=== PATIENT | female | born 1955 | race Caucasian/White ===

== ENCOUNTER → 2022-07-08 | Outpatient (CLI) | payer MEDICARE, OTHER, SELFPAY ==
--- NOTE | 2022-07-08 12:10 | US_ITS ---
STUDY: ULTRASOUND OF THE FEMALE PELVIS - COMPLETE REASON FOR EXAM: Female, 67 years old. PMBPost-Menopausal BleedingUS - LMP: The patient is postmenopausal. TECHNIQUE: Transabdominal and Transvaginal TECHNICAL QUALITY: Adequate. COMPARISON: None. FINDINGS: The uterus is anteverted and is in a midline position. The uterus is enlarged and measures 11.7 cm x 6.5 cm x 5.8 cm. There is a Nabothian cyst of the cervix. The endometrium is thickened and measures 17 mm in thickness, and is heterogeneous (striated). Increased vascularity within the endometrium. There is no demonstrated endometrial mass. 2 small uterine fibroids are seen. The larger measures 2.1 cm x 2 cm x 1.1 cm. I.U.D. - The patient does not have an I.U.D. The right ovary is non-visualized due to bowel gas and patient''s body habitus. The left ovary is visualized due to bowel gas and patient''s body habitus. There is no fluid in the cul-de-sac. The pre void volume of the bladder was 133 ml. US/Pelvic (Non ) IMPRESSION: Enlarged fibroid uterus and thickened endometrium. Electronically Signed: Urbano Marin MD at 15:11 EST ,
== END | disposition home or self-care (01) ==
PROVIDERS: PCP Internal Medicine; Visit Provider Obstetrics & Gynecology
DX: N95.0 Postmenopausal bleeding (principal); D25.9 Leiomyoma of uterus, unspecified
CPT/HCPCS: 76830; 76856

== ENCOUNTER 2022-07-28 15:51 | Outpatient (CLI) | payer MEDICARE, OTHER, SELFPAY ==
--- NOTE | 2022-07-28 13:20 | EMB_PTH ---
PATIENT: LEROY CHRISTIAN LOC: [facility] U#:[id number] AGE/SX: 67/F ROOM: RE07/28/[address]: BERNY Dobbins : 1955 BED: DIS: 07/28/2022 SPEC #: [id number] RECD: 07/28/22 15:46 STATUS: MIMI ISAMAR #: [id number] AMINA: 07/28/22 13:[address]: Bhakti Varner NP DEPT: SURGICAL PATHOLOGY RECD BY: Leticia Gutierrez ENTERED: 07/29/22 07:25 SP TYPE: ENDOM BX/C ANÍBAL DR: Dr. Colby Avendaño MD Tissues: A - Endometrium, NOS B - Uterine cervix, NOS Procedures: Surgery Specimen Level IV HEADER OPERATION: Endometrial biopsy PRE-OP DIAGNOSIS: Abnormal uterine bleeding TISSUE SUBMITTED: A ? Endometrial tissue, B ? Uterine polyp MICROSCOPIC DIAGNOSIS A. Endometrium, biopsy: Weakly proliferative endometrium. Focal stromal hyalinization. B. Uterine polyp, biopsy: Benign ectocervical-endocervical polyp, mildly inflamed. AM:albert 07/30/2022 MICROSCOPIC DESCRIPTION Slides are reviewed. GROSS DESCRIPTION A - Received in fixative is one container labeled with the patient's name and designated endometrial tissue. The specimen consists of multiple fragments of hemorrhagic soft tissue that in aggregate measure 2.5 x 2.5 x 0.1 cm. The specimen is totally submitted in one cassette. B - Received in fixative is one container labeled with the patient's name and designated uterine polyp. The specimen consists of a armando-pink polyp measuring 1 x 1.2 x 0.7 cm. The polyp is bisected. Also present in the container are multiple fragments of armando mucoid tissue measuring in aggregate 0.5 x 0.5 x 0.1 cm. The entire specimen is submitted in one cassette. / LYNN:albert 07/29/2022 TC:5 CPT: 66266 x2
== END 2022-07-28 23:59 | disposition home or self-care (01) ==
LOC: LABSPEC 15:52
PROVIDERS: PCP Internal Medicine; Visit Provider Nurse Practitioner Women's Health
DX: N93.9 Abnormal uterine and vaginal bleeding, unspecified (principal)
CPT/HCPCS: 88305

== ENCOUNTER 2022-09-05 07:24 | Day surgery (SDC) | payer MEDICARE, OTHER, SELFPAY ==
--- NOTE | 2022-09-02 08:51 | EKG12_ITS ---
Test Reason : PREOP Blood Pressure : / mmHG Vent. Rate : 068 BPM Atrial Rate : 068 BPM P-R Int : 130 ms QRS Dur : 088 ms QT Int : 418 ms P-R-T Axes : 020 -12 009 degrees QTc Int : 444 ms Normal sinus rhythm with sinus arrhythmia Nonspecific ST abnormality Septal UT, age undetermined, cannot be excluded Abnormal ECG Confirmed by JENNIFER SOTO, HAZEL ([id number]), editorial director OLIMPIA ISAACS ([id number]) on 09/03/2022 9:43:53 AM Referred By: [facility] Confirmed By:HAZEL RODRIGUEZ MD
[2022-09-02 10:15] LABS: Absolute Lymphocyte Count 2.67 X10^3/uL (0.83-4.51); Absolute Neutrophil Count 4.4 X10^3/uL (2.0-7.7); Basophil# 0.06 X10^3/uL; Basophil% 0.8 % (0-1); Eosinophil# 0.14 X10^3/uL; Eosinophils% 1.8 % (0-5); Hemoglobin 15.1 g/dL (12.0-15.0); Lymphocyte # 2.67 X10^3/ul (0.83-4.51); Lymphocyte % 33.9 % (19-41); Mean Corp Hgb Conc 32.8 g/dL (32-36); Mean Corpuscular Hgb 29.3 pg (27.0-32.0); Mean Corpuscular Volume 89.3 fL (81-99); Mean Platelet Vol. 11.3 fl (6.2-12.0); Monocyte# 0.57 X10^3/uL; Monocyte% 7.2 % (0-10); NRBC Flagged by Analyzer 0 % (0-5); Neutrophil # 4.42 X10^3/uL (2.7-7.7); Platelet Count 264 K/mm3 (150-450); RBC Distribution Width CV 12.8 % (11.6-14.6); RBC Distribution Width SD 41.6 fl (35.1-43.9); Red Blood Count 5.15 M/mm3 (4.2-5.4); White Blood Count 7.9 K/mm3 (4.4-11.0)
[2022-09-02 10:47] LABS: ALB/GLOB Ratio 0.9 RATIO (0.9-2.4); AST(SGOT) 12 U/L (15-37); Alanine Aminotransfer ALT/SGPT 24 U/L (13-56); Albumin, Serum 3.3 g/dL (3.2-5.0); Alkaline Phosphatase 115 U/L (45-117); Anion Gap 5 (5-15); BUN 12 mg/dL (7-18); BUN/Creat Ratio 16.3 RATIO (10-20); Calcium,Total 8.6 mg/dL (8.5-10.1); Chloride 105 mmol/L (98-107); Creatinine, Serum 0.74 mg/dL (0.55-1.02); EST Glomerular Filtration Rate 84 mL/min (>60); Est Glom Filt Rate - Afr Amer 101 mL/min (>60); Globulin 3.7 g/dL (2.2-4.2); Glucose 104 mg/dL (74-106); Sodium Level 141 mmol/L (136-145)
[2022-09-05] VITALS (9 sets, daily range): BP systolic 120–164; BP diastolic 69–89; PULSE 60–88; RESP 16–18; TEMP 36.1–36.3; O2SAT 93–98; BMI 40.4
[2022-09-05] MEDS: Lactated Ringers 1,000 ML 15 ML IV (07:45)
--- NOTE | 2022-09-05 08:16 | DCINST_ITS ---
Discharge Instructions Diet Discharge Diet: No restrictions Activity Discharge Activity: Return to Normal Activity, May Shower and May Take a Tub Bath (after 1 week) May resume sexual activity in: 1-2 weeks Weight Bearing Status: Weight bearing as tolerated Lifting Restrictions: none Dressing / Incision Call your doctor if you observe: Fever of 101 or Higher, Using more than 1 pad per hour, Shortness of breath and Uncontrolled pain Follow Up Care Please Follow Up With: Alessia Ha DO When: Call [phone] to schedule appointment. Test Results: Test results from this visit will be discussed in further detail at your follow- up appointment, if applicable. Discharge Plan Admission Primary Reason for Your Visit: hysteroscopy D&C Attending Provider: Alessia Ha Primary Care Provider: Colby Avendaño Discharge Orders/Prescriptions Prescriptions: New naproxen 500 mg tablet 500 mg PO BID PRN (Reason: pain) Qty: 14 0RF Continued omeprazole 40 mg capsule,delayed release(DR/EC) 40 mg PO DAILY aspirin [Adult Aspirin Regimen] 81 mg tablet,delayed release (DR/EC) 81 mg PO DAILY metoprolol succinate 25 mg tablet extended release 24 hr 25 mg PO BID Referrals / Follow Up: Colby Avendaño MD [Primary Care Provider] - Disposition Disposition (needs filled in before D/C Order can be placed): Home, Self Care
--- NOTE | 2022-09-05 08:55 | EMB_PTH ---
PATIENT: LEROY CHRISTIAN LOC: [facility] [place] U#:[id number] AGE/SX: 67/F ROOM: RE09/05/[address]: Dr. Alessia Ha DO : 1955 BED: DIS: 09/05/2022 SPEC #: [id number] RECD: 09/05/22 11:08 STATUS: MIMI ISAMAR #: [id number] AMINA: 09/05/22 08:[address]: Alessia Ha DEPT: SURGICAL PATHOLOGY RECD BY: Leticia Gutierrez ENTERED: 09/05/22 13:41 SP TYPE: ENDOM BX/C OTHR DR: Dr. Colby Avendaño MD Tissues: Endometrium, NOS Procedures: Gen Path Consultation (on slides) Surgery Specimen Level IV HEADER OPERATION: Hysteroscopy, D & C Symphion, resection of polyp PRE-OP DIAGNOSIS: Thickened endometrium, endocervical polyp TISSUE SUBMITTED: Endometrial curettings and polyp MICROSCOPIC DIAGNOSIS Endometrial curettings and polyp: Fragments of hyalinized smooth muscle tissue with infiltrative glands. See comment. Endometrial hyperplasia without atypia. Endometrial polyp. Endocervical polyp. SJ:rg 09/19/2022 COMMENT The specimen is sent to [facility] for expert opinion, reviewed by Dr. Dennis and the above diagnosis is rendered. Dr. Dennis also commented that ?the bulk of the specimen consist of smooth muscle tissue fragments with degenerative change and infiltrative glands. The glands show some complex architecture, but cytologically appear bland with minimal proliferative activity. Differential diagnosis includes infiltrate well differentiated adenocarcinoma, adenomyoma with degenerative change.? Correlation with clinical findings and appropriate follow-up are necessary. The complete report is viewable in the patient's EMR. Case has been reviewed in consultation with Dr. Travis who concurs with the above diagnosis. IDC:AM MICROSCOPIC DESCRIPTION Slides are reviewed. GROSS DESCRIPTION Received in fixative is one container labeled with the patient's name and designated endometrial curettings and polyp. The specimen consists of multiple irregular fragments of armando soft tissue that in aggregate measure 5 x 3 x 0.6 cm. Also present in the container are two polypoid pieces of armando-pink measuring 0.6 and 2 cm in greatest dimension. The entire specimen is submitted in six cassettes. Cassette 1 contains the polypoid pieces. / LYNN:albert 09/05/2022 TC:5 CPT: 78842
[2022-09-05] MEDS: Lidocaine 1% (20 ml mdv) 20 ML Vial (09:18)
--- NOTE | 2022-09-05 09:36 | PCM.OP.BLANK ---
Operative Report Date of Procedure: 09/05/22 preoperative diagnosis: postmenopausal bleeding and office biopsy diagnosis of cervical polyp Postoperative diagnosis:postmenopausal bleeding and office biopsy diagnosis of cervical polyp Surgeon: Dr. Alessia Ha DO EBL: minimal urine output: 30cc findings: atrophic appearing uterus specimens removed: endometrial curettings and polyp fluid deficit 800cc Details of the procedure: Patient was prepped and draped in a normal sterile fashion under MAC anesthesia. A weighted speculum was placed in the vagina and the anterior lip of the cervix was grasped with a single-tooth tenaculum. A paracervical block was placed with 1% lidocaine. Cervix was progressively dilated to allow passage of a 5 mm hysteroscope. The lining was fully visualized and noted to have a moderate size polyp present at the lower uterine segment,. The symphion device was inserted and activated to remove the polyp. A sharp curettage was performed following the symphion procedure and specimen was sent to pathology. All instruments were removed from the vagina and excellent hemostasis was noted. Patient was awoken and taken to recovery in stable condition. Multi Select Codes Urinary/Genital Urinary/Genital CPT Codes: 03567 Hysteroscopy,EMC, Polypectomy
--- NOTE | 2022-09-05 12:29 | PCM.HP.BLA ---
History and Physical Date of Admission: 09/05/22 MR#: [id number] Acct: [id number] Name:LEROY CONTRERAS Rep #: [id number] : 1955 ? ? Provider: Dr. Alessia Ha, DO Age/Sex:? 67/F ? ? Location: [facility] – [place] Status: Signed Intake Vital Signs ? 08/21/2208:22 08/21/2208:22 Height 5 ft 10 in 5 ft 10 in Weight: 284 lb ? BMI 40.7 ? BP 166/84 H ? Intake Visit Reasons:?D&C Chief Complaint: pre op D&C Clipper And Turner Required: No Is patient in pain?: No Allergies No Known Allergies Allergy (Unverified 07/28/22 13:04) Medications aspirin 81 mg tablet,delayed release (Adult Aspirin Regimen) 81 mg PO DAILY 07/28/22 [History Confirmed 08/21/22] metoprolol succinate 25 mg tablet,extended release 24 hr 25 mg PO BID 07/28/22 [History Confirmed 08/21/22] omeprazole 40 mg capsule,delayed release 40 mg PO DAILY 07/28/22 [History Confirmed 08/21/22] Is last menstrual period known: No Post menopausal: Yes Patient : No : No PFSH Medical History? Acid reflux Hypertension Surgical History? S/P Achilles tendon repair S/P cholecystectomy Family History? Father Cancer ?? ? bladder, prostate, lung Social History?(Updated 08/21/22 @ 08:22 by Adalgisa Gorman) Smoking Status:? Former smoker alcohol intake:? never substance use type:? does not use caffeine:? Yes do you feel safe at home:? Yes HPI D&C Details: LEROY CHRISTIAN is a 67 year old who presents for pre-op hysteroscopy D&C possible polypectomy due to 15 mm endometrium after a cervical polyp was removed. It is believed that the polyp my have tracked to the uterus and the entire polyp was not removed in the office. She is scheduled for 09/05/22. ROS Const ROS Unobtainable: All systems reviewed & are unremarkable except as noted in H Resp Resp: Reports system reviewed and no additional complaints, except as documented; Denies cough GI GI: Reports as per HPI Psych Psych: Reports system reviewed and no additional complaints, except as documented Exam Const General: cooperative, healthy appearing, comfortable and no acute distress Resp Effort & Inspection: normal respiratory effort Skin General: no rashes or lesions noted Psych Appearance: grossly normal Speech and Movement: speech and movement normal Coding Level of Care Code Off vis,est,level 3 Diagnoses Thickened endometrium? R93.89 Endocervical polyp? N84.1 Assessment and Plan Assessment and Plan (1) Thickened endometrium: ?Status:?Acute (2) Endocervical polyp: ?Status:?Acute Plan After discussing the patient's diagnosis and treatment plan options, patient wishes to proceed with surgical management.? I have discussed with the patient the risks, benefits, and alternatives of the procedure which include but are not limited to risks of anesthesia, bleeding, infection, possible damage to bowel, bladder, or surrounding vasculature which could lead to additional surgery to evaluate any complications.? Patient agrees to procedure and wishes to proceed.? ACOG/uptodate references given for additional information regarding procedure.? plan for hysteroscopy with the symphion device and guided D&C with possible polypectomy
== END 2022-09-05 11:42 | disposition home or self-care (01) ==
LOC: SDC 07:25 → AC 07:26
PROVIDERS: PCP Internal Medicine; Referring Provider Obstetrics & Gynecology; Visit Provider Obstetrics & Gynecology
PROC: 0UB98ZZ Excision of Uterus, Via Natural or Artificial Opening Endoscopic (ICD-10-PCS; CPT 58558; principal; 2022-09-05 08:40)
DX: N84.1 Polyp of cervix uteri (principal); N95.0 Postmenopausal bleeding; I10 Essential (primary) hypertension; Z79.899 Other long term (current) drug therapy; Z87.891 Personal history of nicotine dependence
CPT/HCPCS: 58558; 00952; 36415; 80053; 85025; 86850; 86900; 86901; 88305; 88325; 93005; J7120; J2405

== ENCOUNTER 2024-05-17 11:30 | Inpatient (IN) | payer MEDICARE, SELFPAY ==
[2024-05-17] VITALS (9 sets, daily range): BP systolic 175–228; BP diastolic 81–118; PULSE 67–87; RESP 18; TEMP 36.8; O2SAT 94–97; BMI 40.7; BMI 40.6
--- NOTE | 2024-05-17 12:26 | EX.PCM.HP.RE ---
HPI - General General Date of Admission: 05/17/24 Date of Service: 05/17/24 Chief Complaint: POST STROKE DEBILITY HPI Narrative LEROY CHRISTIAN, is a 69 yo F with a PMH of HTN, morbid obesity, GERD, nocturia, chronic low back pain(takes Meloxicam) and insomnia who presented to the emergency department at [facility] on 05/15/2024 complaining of weakness of the left arm and left leg and tingling in the left hand. She also admits to having some memory difficulties. The weakness that started on , 05/12/2024 and she did not seek medical care. Systolic blood pressure in the emergency department was elevated in the 200s. Noncontrast CT brain was unremarkable with no acute changes. CTA of the head and neck showed moderate stenosis of the distal right vertebral artery just proximal to the basilar artery which was patent. An incidental finding was scattered hypodensities throughout the periventricular white matter most likely consistent with chronic small vessel angiopathy. Another incidental finding on the CTA of the neck was a 2.1 cm right thyroid nodule. While an IV was being placed she became lightheaded and bradycardic with a heart rate in the high 20s/low 30s. She was given 0.5 mg of atropine with improvement. There is no NIHSS documented on the ER documentation. Physical exam showed her to be alert and oriented x 3 with intact cranial nerves II through XII. Strength was reportedly 5/5 in the upper and lower extremities and equal bilaterally. She had no sensory deficits. [id number] was normal. She is not able to do heel em due to inflexibility of the hips and knees BL. Labs showed a hemoglobin A1c of 5.6%. Total cholesterol was 218 with an LDL of 154 and an HDL of 44. Triglycerides were within normal limits at 99. TSH and free T4 were both normal. Lab was otherwise unremarkable. She was admitted to the hospital. MRI on 05/16/2024 showed acute/early subacute nonhemorrhagic lacunar infarct centered in the right garza radiata and posterior putamen. There were mild chronic microvascular white matter ischemic changes. A referral was made for acute rehab and she was transferred to the acute inpt rehab unit at [facility]? on 05/17/24 for 3 hours of therapy daily to restore function/independence at or near her level prior to the stroke. I do not see a tele-neurology consult in the documentation sent to us from [facility]. She admits to seeing her PCP only once a year. Her BP is always high when she gets there but, on recheck after she calms down it is better. She does not check her BP at home. She tells me that she is supposed to see her PCP every 6months but, she feels fine and does not feel this is necessary. Last MMG was about a year ago. She has had a breast bx in the past and it was negative for malignancy. She has never had a bone mineral density test. Her tells me that she snores and she stops breathing at night when sleeping. she has never had a sleep study. She denies hx of AF and also denies palpitations and racing heart. 1. Do you snore loudly? Y 2. Do you often feel tired, fatigued or sleepy during the day? Yes 3. Has anyone ever observed you stop breathing during sleep? Yes 4. Do you have (or are you being treated for) HTN? Yes BMI 40.8 AGE 69 Neck circumference 40 Gender female Total 7 PFSH Medical History (Updated 05/17/24 @ 13:[address] Ruth Nunn, DO) Insomnia Nocturia more than twice per night Morbid obesity with BMI of 40.0-44.9, adult Endometrial hyperplasia Afraid Wears glasses Wears partial dentures Post-menopausal Arthritis Back pain Migraine headache Former smoker Leg cramps Cardiology follow-up encounter Thickened endometrium Endocervical polyp Acid reflux Hypertension Post-menopausal bleeding Home Medications ?Medication ?Instructions ?Recorded ?Last Taken ?Type aspirin 81 mg tablet,delayed 81 mg PO DAILY Heart health 07/28/22 09/02/22 History release (Adult Aspirin Regimen) atorvastatin 40 mg tablet 40 mg PO DAILY Cholestrol 05/17/24 Unknown History clopidogrel 75 mg tablet 75 mg PO DAILY blood thinner 05/17/24 Unknown History enoxaparin 40 mg/0.4 mL 40 mg subcut DAILY Blood thinner 05/17/24 Unknown History subcutaneous syringe (Lovenox) meloxicam 15 mg tablet 7.5 mg PO DAILY Osteoarthritis 05/17/24 Unknown History metoprolol tartrate 50 mg tablet 50 mg PO BID BP 05/17/24 Unknown History solifenacin 10 mg tablet 10 mg PO DAILY Bladder 05/17/24 Unknown History trazodone 100 mg tablet 100 mg PO QHS sleep 05/17/24 Unknown History Allergy/AdvReac Type Severity Reaction Status Date / Time No Known Allergies Allergy Unverified 09/30/22 10:52 Family History (Updated 05/17/24 @ 13:[address] Ruth Nunn DO) Father Cancer bladder, prostate, lung Mother Diabetes Hypertension Surgical History (Updated 05/17/24 @ 13:[address] Ruth Nunn DO) History of breast biopsy S/P D&C (status post dilation and curettage) (~09/05/22) History of cardiac catheterization Hx of tonsillectomy S/P Achilles tendon repair S/P cholecystectomy Social History (Updated 05/17/24 @ 13:[address] Ruth Nunn DO) household members: spouse housing: house Smoking Status: Never smoker how long ago did patient quit smoking: >20 years ago......smoked less than 1 PPD for a few years. alcohol intake: current alcohol intake frequency: holidays/special occasions only substance use type: does not use caffeine: Yes do you feel safe at home: Yes Homelessness:: Sheltered (Not homeless. ) ROS Constitutional Constitutional: Reports fatigue and weakness; Denies anorexia, change in weight, chills, fever(s) or night sweats Eyes Eyes: Denies blurry vision, change in vision, eye pain or loss of vision ENT HEENT: Denies abnormal hearing, dysphagia, headache(s), hearing loss, nasal congestion or sore throat Cardiovascular Cardiovascular: Denies chest pain, dyspnea on exertion, edema, lightheadedness, orthopnea, palpitations, paroxysmal nocturnal dyspnea or syncope Respiratory/Chest Respiratory/Chest: Reports shortness of breath with exertion; Denies cough, dyspnea, shortness of breath at rest or wheezing Gastrointestinal Gastrointestinal: Reports other Details: heartburn....on Omeprazole ; Denies abdominal pain, constipation, diarrhea, dyspepsia, hematemesis, hematochezia, nausea or vomiting Genitourinary Genitourinary: Reports nocturia; Denies dysuria, hematuria, urinary frequency, urinary hesitancy, urinary incontinence or urinary urgency Musculoskeletal Musculoskeletal: Denies back pain, joint pain, joint swelling or neck pain Integumentary Integumentary: Denies jaundice, pruritus, rash or wounds Neurologic Neurologic: Reports abnormal gait, numbness, paresthesias and other Details: difficulties with memory ; Denies confusion, disequilibrium, dizziness, focal weakness, headache(s), seizures or tremor(s) Psychiatric Psychiatric: Denies anxiety, depression, homicidal ideation or suicidal ideation Endocrine Endocrinology: Denies change in body appearance, polydipsia or polyuria Hematologic/Lymphatic Hematologic/Lymphatic: Denies easy bleeding, easy bruising or lymphadenopathy Allergic/Immunologic Allergic/Immunologic: Denies rhinitis, eczemia or asthma Vital Signs Vital Signs Vital Signs: Weight Weight: 284 lb 2.813 oz Body Mass Index (BMI) 40.7 Indicators for Scoring Admitted with or Primary Diagnosis of CVA/Stroke: Yes Hx of CVA/Stroke: Yes Modified Hood Score MRS Score at time of Evaluation: 4-Moderate/severe disability NIHSS NIHSS 1a. Level of Consciousness: Alert; keenly responsive 1b. LOC Questions: Answers BOTH questions correctly. 1c. LOC Commands: Performs both tasks correctly. 2. Best Gaze: Normal 3. Visual: No visual loss 4. Facial Palsy: Normal symmetrical movements 5a. Left Arm: No drift; arm holds 90 (or 45) degrees for full 10 seconds (No drift but, the L arm is weaker than the R. she is R hand dominant.) 5b. Right Arm: No drift; arm holds 90 (or 45) degrees for full 10 seconds 6a. Left Leg: Drift; leg falls by the end of 5-seconds, but does not hit bed (some weakness with dorsiflexion) 6b. Right Leg: No drift; leg holds 30-degree position for full 5 seconds 7. Limb Ataxia: Absent (absent in UE's. Unable to do heel em adequately due to body habitus and inflexibility of the hips and knees) 8. Sensory: Oitd-hm-sadjdxyx sensory loss; 9. Best Language: No aphasia; normal 10. Dysarthria: Normal 11. Extinction and Inattention: No abnormality Total: 2 Stroke Questions Stroke Team Activated: No Physical Exam Const alert, oriented x3 and no apparent distress Constitutional Narrative: obese Makes good eye contact with me when talking Sitting in the recliner at the bedside and appears comfortable. Not confused but, occasional word finding difficulty. General Appearance: well developed HEENT normocephalic and head/scalp atraumatic HEENT Narrative: No obvious hearing difficulties Mouth: dry mucous membranes Eyes PERRL and EOMs intact bilaterally Eyes Narrative: No scleral icterus, no conjunctival injection, no discharge from the eyes. Neck supple Neck Narrative: There is a soft right carotid bruit present. Barrow best at the base of the neck General: trachea midline Resp normal respiratory effort and clear to auscultation bilaterally Effort and Inspection: Negative for tachypneic Auscultation: diminished lung sounds bilateral (Diminished breath sounds may be secondary to body habitus.) lower Cardio regular rate, regular rhythm, S1 normal heart sound, S2 normal heart sound, no murmurs, no rub and no gallops Cardio Narrative: No ectopy GI normal to inspection, nondistended, normoactive bowel sounds and soft to palpation GI Narrative: Obese, no guarding with palpation. Extremity no calf tenderness General Extremity: edema bilateral Skin no wounds, no jaundice, no petechiae and no mottling Skin Narrative: Has puncture wounds from IV attempts in both antecubitals. Small scab on the distal R anterior em area. No erythema and no DC. General Skin Exam: no breakdown and dry skin Rashes: no rashes Neuro CN's II-XII intact bilaterally Neuro Narrative: Weakness of the LUE and the LLE. intact finger nose BL but, can not do heel em due to body habitus. No extinction. Intact sensation to pinprick throughout but, c/o tingling in the L hand that is new since the stroke. No visual field cuts. tongue protrudes on the midline. Occasional trouble finding a word. No significant dysarthria. Psych thought process normal, cooperative and denies suicidal ideation Psych Narrative: A little defensive when I am asking her questions, ana rosa when asking how often she sees her PCP. Does not believe in sleep apnea and has never had a sleep study. Also does not believe in bone density testing. Appearance: appropriate Attitude: No agitated Mood & Affect: anxious Thought Content: No hallucination(s) Results Lab / Micro Data 05/18/24 05:49 Assessment & Plan Assessment/Plan (1) Debility: (2) Acute left-sided muscle weakness: (3) Ischemic cerebrovascular accident (CVA): (4) Hypertension: QUALIFIERS: Hypertension type: primary hypertension Qualified Code(s): I10 - Essential (primary) hypertension (5) HLD (hyperlipidemia): QUALIFIERS: Hyperlipidemia type: pure hypercholesterolemia Qualified Code(s): E78.00 - Pure hypercholesterolemia, unspecified (6) Thyroid nodule greater than or equal to 1.5 cm in diameter incidentally noted on imaging study: PLAN: 2.1. cm R thyroid nodule. Recommend US following DC from rehab.....will defer to PCP. T4 and TSH are normal. (7) Right carotid bruit: PLAN: No significant stenosis on CTA of the neck. Consider carotid US. (8) HANNA (obstructive sleep apnea): PLAN: STOP BANG score is 7, even without measuring the neck circumference. (9) Morbid obesity with BMI of 40.0-44.9, adult: PLAN: Weight loss advised. Will get consultation with the genetics nurse for education on weight loss, low fat and low salt diet. (10) Acid reflux: QUALIFIERS: Esophagitis presence: esophagitis presence not specified Qualified Code(s): K21.9 - Gastro-esophageal reflux disease without esophagitis (11) Nocturia more than twice per night: (12) Insomnia: QUALIFIERS: Insomnia type: unspecified Qualified Code(s): G47.00 - Insomnia, unspecified PLAN: Plan PLAN PT for gait stability OT for ADL's ST for evaluation Analgesics as needed Bowel protocol Fall precautions Assess for Anxiety/Depression - Continue Trazodone for insomnia GI prophylaxis -continue PPI DVT prophylaxis with Lovenox 40 mg subcu daily. PAU paredes Follow up with PCP and neurology following DC from IP Rehab AM lab including CMP, CBC, Mag, phos, HGBA1C thyroid US as OP - defer to PCP. Recommended a bone density study as an OP. Overnight trending pulse ox. This is a cryptogenic stroke. No hx of AF. CTA of the head and the neck with no significant stenosis except for the R vertebral proximal to the basilar artery and the basilar artery is patent. I suspect she has sleep apnea. 30 day event monitor at [place]. Add Amlodipine to the current drug regimen.......BP 204/91 with a heart rate of 68 in the right arm and 205/89 in the left arm at presentation to rehab...... no change when repeated in 1 hour. Hydralazine 25 mL grams every 4 hours as needed systolic greater than 170 or diastolic greater than 85. Permissive HTN for the next 4-5 days and then the goal is < 130/80 Continue dual antiplatelet agents for a total of 3 weeks and then discontinue Plavix Continue high intensity statin-atorvastatin 40 mg nightly Repeat lipid profile and LFTs in 6 weeks. Goal LDL is less than or equal to 70 Goal blood pressure less than 130/80 recommended weight loss and regular exercise program. Recommend she obtain a BP cuff at [place] so she can monitor her BP at home. she attributes the high BP to nerves........suspect it is often elevated. Check with Laisha Kaplan to see if she had a TTE.....if not will need to do one. Check to see if she had a tele-neurology consult at [facility]. Charges/Coding Visit Charges Inpatient E&M: 63292 Init Hosp L3
--- NOTE | 2024-05-17 13:49 | PCM.RU.PYE ---
Admission Information Primary Diagnosis:: Post ischemic stroke debility Status Changes from Prescreening?: No changes Identified Actual Problem List:: Cognitve Impr/Memory Loss, Alteration in Sleep, Mobility Impaired, Self Care Deficit, Know.Dfct/Disease Process, Know.Dfct of Medicaitons and BP, Hypertension (Uncontrolled) Potential Problem List:: DVT, Bleeding, Infection, UTI, Aspiration, Falls, Skin Integrity and Depression Risk of Complications DVT: LMWH and PAU Hose Bleeding: Monitor Lab Values, Nursing to Teach Precautions for anti-coagulation therapy., Wound, if applicable, to be assessed every shift. and Stroke patients assessed for lethargy or change in status. Infection: Clinical Staff to Monitor for S/S of infection: and S/S of infection include fever, redness, warmth, etc. Urinary Tract Infection: Monitor for frequency, burning, discomfort, or incontinence. and Nursing will obtain urine sample for urinalysis and C&S when ordered. Aspiration: Clinical staff will monitor for coughing, drooling, congestion., Speech will evaluate swallowing and dsyphasia. and Nursing will monitor patient swallowing during meals. Falls: Patient will be evaluated for Fall Precautions and Patient will be placed on Fall Precautions as indicated per protocol. Skin Breakdown: Nursing will assess skin daily using assessment tool. and Nursing will place on Skin Breakdown Precautions as indicated. Pain: Clinical staff will assess patient's pain level per protocol., Medications will be given, if needed, and the pain level reassessed. and Other methods: Massage, distraction, decrease stimulus, etc. used PRN. Plan of Care Patient requires physician specializing in physical medicine and rehab oversight to provide close medical supervision of rehab issues including: Pain Management, Sleep Problems, Bowel and Bladder, Medical and co-morbidity Management, DVT prophylaxis, Rehabilitation Leadership and Coordination of treatment team Patient needs Physical Therapy: For a minimum of 1 hour and At least 5 out of 7 days Patient needs Physical Therapy to improve:: Mobility, Strengthening, Transfers, Stretching, ROM, Endurance, Stairs, Gait and Balance Patient needs Occupational Therapy: For a minimum of 1 hour and At least 5 out of 7 days Patient needs Occupational Therapy to improve ADL's incl.: Eating, Grooming, Bathing, Dressing, Toileting, Toilet transfers, Community Reintegration, Higher functioning activities, Household tasks, Adaptive Equipment, Splinting and Other activities as determined Patient requires speech therapy: For a minimum of 1 hour and At least 5 out of 7 days Patient requires speech therapy for: Swallowing, Cognition, Language Skills and Compensatory Strategies Patient requires 24/ Rehabilitation Nursing for: Pain Issues, Identifying and preventing risk factors, Monitoring and reporting current medical conditions, Assisting with ambulation, transfer, and all ADL's, Teaching patients about disease process and medications, Family teaching, Providing safe environment, Bowel and Bladder Issues, Skin integrity and Medication Management Patient needs [facility] Day Care Center Worker/ Case Management for: Discharge Planning, Arranging Home Equipment or Services and Family Interventions Patient needs Dietary and Nutrition Services for: Adequate Nutrition, Nutritional Supplements and Nutritional Education Goals Goals Patient will remain: free from falls Patient will perform eating at: MOD I level of assist. Patient will perform bed mobility at: MOD I level of assist. Patient will complete transfers from bed to chair at: MOD I level of assist. Patient will ambulate: - (350 feet with least restrictive device at mod I on various surfaces) Patient will complete upper body dressing at: MOD I level of assist. Patient will complete lower body dressing at: MOD I level of assist. (With adaptive equipment as needed) Patient will complete toilet transfer at: MOD I level of assist. Patient will complete toileting at: MOD I level of assist. Patient will perform bathing at: MOD I level of assist. (Upper body bathing independently and lower body bathing at mod I with adaptive equipment as needed for thoroughness.) Patient will perform Tub/Shower transfer at: MOD I level of assist. Patient will complete grooming at: MOD I level of assist. Patient will complete home management skills at: MOD I level of assist. Patient will achieve: - (1 curb step with least restrictive device at standby assist) Patient will have pain level of: of 3 or less Patient's skin will: remain intact Patient will receive: adequate nutrition. Discharge Planning Pt Prognosis for Sig. Practical Improv. w/in Reasonable Time: Good Estimated Length of stay (days): 28 Anticipated D/C Destination: Home with Outpt Therapy Was Preadmission Assessment Accurate?: Yes
[2024-05-17] MEDS: amLODIPine 5 MG Tablet PO (15:15)
[2024-05-17] MEDS: hydrALAZINE 25 MG Tablet PO (15:16)
[2024-05-17] MEDS: LORazepam 1 MG Tablet PO (18:20)
[2024-05-17] MEDS: hydrALAZINE 50 MG Tablet PO (18:21)
[2024-05-17] MEDS: Metoprolol Tartrate 50 MG Tablet PO (21:06)
[2024-05-17] MEDS: traZODone 100 MG Tablet PO (21:07)
[2024-05-18] VITALS (13 sets, daily range): BP systolic 157–194; BP diastolic 59–94; PULSE 66–72; RESP 16–17; TEMP 36.9–37.2; O2SAT 95–97; BMI 40.6
[2024-05-18 06:00] LABS: Absolute Lymphocyte Count 2.85 X10^3/uL (0.83-4.51); Absolute Neutrophil Count 5.1 X10^3/uL (2.0-7.7); Basophil# 0.04 X10^3/uL; Basophil% 0.5 % (0-1); Eosinophil# 0.18 X10^3/uL; Hematocrit 42.2 % (37-47); Lymphocyte # 2.85 X10^3/ul (0.83-4.51); Lymphocyte % 32.1 % (19-41); Mean Corp Hgb Conc 33.2 g/dL (32-36); Mean Corpuscular Hgb 28.9 pg (27.0-32.0); Mean Corpuscular Volume 87.2 fL (81-99); Mean Platelet Vol. 10.4 fl (6.2-12.0); Monocyte% 7.9 % (0-10); NRBC Flagged by Analyzer 0 % (0-5); Neutrophil # 5.09 X10^3/uL (2.7-7.7); Neutrophil % 57.3 % (47-70); Platelet Count 225 K/mm3 (150-450); RBC Distribution Width CV 12.9 % (11.6-14.6); RBC Distribution Width SD 41.1 fl (35.1-43.9); Red Blood Count 4.84 M/mm3 (4.2-5.4); White Blood Count 8.9 K/mm3 (4.4-11.0)
[2024-05-18 06:29] LABS: Magnesium 2.3 mg/dL (1.6-2.6); Phosphorus 3.6 mg/dL (2.5-4.9)
[2024-05-18] MEDS: hydrALAZINE 50 MG Tablet PO ×2 (06:39→17:12)
[2024-05-18 08:33] LABS: Hemoglobin A1c 5.5 % (3.8-5.6)
[2024-05-18] MEDS: Enoxaparin 40 MG/0.4 ML Syringe SC (08:33)
[2024-05-18] MEDS: Aspirin E.C. 81 MG Tablet PO (08:34)
[2024-05-18] MEDS: Metoprolol Tartrate 50 MG Tablet PO ×3 (08:34→20:55)
[2024-05-18] MEDS: Meloxicam 7.5 MG Tablet PO (08:34)
[2024-05-18] MEDS: amLODIPine 5 MG Tablet PO (08:34)
[2024-05-18] MEDS: Clopidogrel Bisulfate 75 MG Tablet PO (08:34)
[2024-05-18] MEDS: Tolterodine Tartrate 4 MG CAP.SA PO (08:34)
--- NOTE | 2024-05-18 08:37 | PCM.PROGNOTE ---
Subjective Subjective Afebrile VSS -blood pressure has ranged from 175/90 to 220/118 since arrival at rehab. Pulse is ranged from 67-87. Maintaining appropriate oxygen saturation on RA Oral intake - FOOD 75 to 100% of all meals FLUIDS fair Discussed with nursing - no problems that need addressed Reviewed the THERAPY notes Medication list review current antihypertensives include Metoprolol 50 mg BID and PRN Hydralazine. All lab drawn this morning was personally reviewed. White blood cell count is normal. Hemoglobin is 14 and platelets are within normal limits. MCV and MCH are normal. Differential is unremarkable. Hemoglobin A1c is normal at 5.5%. Phosphorus and magnesium are normal. CMP is ordered and results are pending. She is c/o vaginal itching and sores. She attributes the sores to itching........not sure this is the case. She last saw Dr. Ha in August of 2022. She was c/o perineal itching at that time and was placed on clobetasol ointment which was to continue for 12 weeks. If the end of 12 weeks she still had vaginal itching she was to return for a vulvar biopsy. This never happened. She tells me that the itching never went away and the cream burned. She has also been given cream (does not know the name) by her PCP and it has not helped. She denies vaginal DC and also denies vaginal pain. Denies pain in the mouth or any sores in the mouth. Tells me that she did not sleep well last night. She partially attributes this to the vulvar itching. The overnight trending pulse ox showed the oxygen dropped to 89 or less 2.18% of the time she was monitored BUT, she did not sleep last night so I do not think this is actually a valid test. STOP BANG is 7. She denies feeling anxious. She was given 1 mg of PO Ativan yesterday and she was able to sleep for about 1 -2 hours when family left. was here most of the afternoon and then the dtr and the patients mother were in the room. She has never been treated for anxiety or depression. Worries about her who has many medical problems and was recently diagnosed with PNA. She worries about him not eating since he can't cook. Worries about a lot of things. Denies cephalgia, lightheadedness, vertigo, cough, shortness of breath at rest, palpitations, nausea/vomiting/abdominal pain and calf tenderness. Objective Data Objective Data Vital Signs: Vital Signs Temp Pulse Resp BP Pulse Ox O2 Del Method FiO2 98.4 F 72 16 194/94 H 97 Room Air 21 05/18/24 06:30 05/18/24 08:34 05/18/24 06:30 05/18/24 08:34 05/18/24 06:30 05/18/24 06:30 05/17/24 22:05 Oxygen Delivery Method Room Air Weight: 284 lb 2.813 oz Body Mass Index (BMI) 40.6 Intake & Output: Intake and Output for Last 24 Hours 05/16/24 05/17/24 05/18/24 23:59 23:59 23:59 Intake Total 400 / 800 800 / 800 Output Total 300 / 650 450 / 450 Balance 100 / 150 350 / 350 Lab / Micro Data 05/18/24 05:49 05/18/24 05:49 Labs: Laboratory Results - last 24 hr 05/18/24 05:49: WBC 8.9, RBC 4.84, Hgb 14.0, Hct 42.2, MCV 87.2, MCH 28.9, MCHC 33.2, RDW Std Deviation 41.1, RDW Coeff of Kalyan 12.9, Plt Count 225, MPV 10.4, Immature Gran % (Auto) 0.200, Neut % (Auto) 57.3, Lymph % (Auto) 32.1, [place] % (Auto) 7.9, Eos % (Auto) 2.0, Baso % (Auto) 0.5, Absolute Neuts (auto) 5.1, Absolute Lymphs (auto) 2.85, Nucleated RBC % 0, Hemoglobin A1c 5.5, Phosphorus 3.6, Magnesium 2.3 Social Homelessness:: Sheltered (Not homeless. ) Physical Exam Const alert and no apparent distress Constitutional Narrative: Appears sleepy and fatigued today. Resp clear to auscultation bilaterally Auscultation: diminished lung sounds bilateral (More noticeable in the bases the lungs and I suspect this has a lot to do with body habitus and poor effort.) Cardio regular rate, regular rhythm, no murmurs and no gallops Cardio Narrative: no ectopy Rate: Negative for bradycardia or tachycardic GI normal to inspection, nondistended, normoactive bowel sounds, soft to palpation and non-tender Extremity Extremity Narrative: stasis dermatitis General Extremity: edema Skin Skin Narrative: She is not willing to allow me to examine the vulva at this time. I explained that I can't treat if I can not examine and she would need to go back to Dr. Ha to have a vulvar biopsy so that a definitive DX could be made. She has stasis dermatitis of both LE's and edema due to chronic venous insufficiency. Psych Psych Narrative: Has not been taking care of herself. Ignores problems she has and does not follow up. she has insomnia and admits to worrying a lot. Not very forthcoming with hx. Gets somewhat defensive when you ask her why she has not followed up to get chronic conditions treated. Prefers I would forget she said anything about the vulvar itching rather than submit to a pelvic exam. Assessment & Plan Assessment/Plan (1) Debility: (2) Acute left-sided muscle weakness: (3) Ischemic cerebrovascular accident (CVA): (4) Hypertension: QUALIFIERS: Hypertension type: primary hypertension Qualified Code(s): I10 - Essential (primary) hypertension (5) HLD (hyperlipidemia): QUALIFIERS: Hyperlipidemia type: pure hypercholesterolemia Qualified Code(s): E78.00 - Pure hypercholesterolemia, unspecified (6) Thyroid nodule greater than or equal to 1.5 cm in diameter incidentally noted on imaging study: PLAN: 2.1. cm R thyroid nodule. Recommend US following DC from rehab.....will defer to PCP. T4 and TSH are normal. (7) Right carotid bruit: PLAN: No significant stenosis on CTA of the neck. Consider carotid US. (8) HANNA (obstructive sleep apnea): PLAN: STOP BANG score is 7, even without measuring the neck circumference. (9) Morbid obesity with BMI of 40.0-44.9, adult: PLAN: Weight loss advised. Will get consultation with the accounts payable associate for education on weight loss, low fat and low salt diet. (10) Acid reflux: QUALIFIERS: Esophagitis presence: esophagitis presence not specified Qualified Code(s): K21.9 - Gastro-esophageal reflux disease without esophagitis (11) Nocturia more than twice per night: (12) Insomnia: QUALIFIERS: Insomnia type: unspecified Qualified Code(s): G47.00 - Insomnia, unspecified (13) Vulvar itching: (14) Pulmonary hypertension: (15) Left ventricular hypertrophy: (16) Grade I diastolic dysfunction: PLAN: Plan 1. Continue therapy 2. Metoprolol 25 mg p.o. now to bring up the total dose of 75 mg this morning. Recheck the blood pressure in 2 hours. suspect we are going to need to add a second drug for BP control. I suspect she has a lot of anxiety and this is contributing to the elevated BP. Will push the beta saniya dosage up. Blood pressure is likely chronically uncontrolled. I reviewed the echo report from [facility] and she has increased wall thickness of the left ventricle and increased thickness of the ventricular septum. Ejection fraction was 60% with no wall motion abnormalities. The right ventricular systolic pressure is estimated to be 37 which is consistent with mild pulmonary hypertension. 3. IF she changes her mind about doing a pelvic exam I will examine her and prescribe something. Otherwise she was told she can follow up with Dr. Ha for a vulvar BX as an OP. 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 4. Spoke with the who is going to do an anxiety inventory with her. 5. Recommend she have a sleep study at [facility] but, will need to get her sleeping better before this can be done. 6. Check a baseline cortisol in the AM. 7. Hold the Trazodone tonight and give 1 mg of Klonopin at 2100 I reviewed the [facility] report and she had a RX for 90 days of phentermine in Oct. Will need to ask if she is taking any OTC weight loss medications specifically. Charges/Coding Visit Charges Inpatient E&M: 89088 Subs Hosp L2
[2024-05-18 10:06] LABS: AST(SGOT) 13 U/L (15-37); Alanine Aminotransfer ALT/SGPT 17 U/L (13-56); Alkaline Phosphatase 106 U/L (45-117); Anion Gap 6 (5-15); BUN 22 mg/dL (7-18); BUN/Creat Ratio 27.9 RATIO (10-20); Calcium,Total 8.9 mg/dL (8.5-10.1); Chloride 108 mmol/L (98-107); Creatinine, Serum 0.79 mg/dL (0.55-1.02); EST Glomerular Filtration Rate 77 mL/min (>60); Est Glom Filt Rate - Afr Amer 93 mL/min (>60); Estimated Creatinine Clearance 97.08 ml/min; Globulin 2.9 g/dL (2.2-4.2); Glucose 107 mg/dL (74-106); Potassium 3.7 mmol/L (3.5-5.1); Protein, Total 5.9 g/dL (6.4-8.2); Sodium Level 142 mmol/L (136-145)
[2024-05-18] MEDS: Metoprolol Tartrate 25 MG Tablet PO (10:48)
[2024-05-18] MEDS: Lisinopril 10 MG Tablet PO (11:51)
--- NOTE | 2024-05-18 12:36 | CASEMGMT ---
Social Work- SW met with patient to complete initial assessment. Introduced self and role. Verified/updated contacts. Pt reports not having advanced directives; pt declines information/wanting to complete at this time. SW advised that pt can ask to complete at any point during her stay or make an appointment after d/c. Pt has lived in a moblie home with spouse of 49 years; pt plans to return at d/c. Pt has three children, all local, whom she is very close with. Pt also reports that she has 8 grandchildren including one who is getting 06/23/24. Pt adamantly denies anxiety, but does report sometimes feeling worried about spouse who is at home with pneumonia currently. Pt reports feeling frustrated that she is unable to help care for him and make sure he is taking care of himself. Pt BIMS score 15/15. Pt PHQ9 score 0/2. KIKI score:1. SW remains available to follow. POOL Gallego
--- NOTE | 2024-05-18 14:24 | CASEMGMT ---
Social Work- SW met with patient to complete initial assessment. Introduced self and role. Verified/updated contacts. Pt reports that she does not have advanced directives; pt not interested in completing at this time. SW advised that pt could request SW to assist in completion at any time duiring her stay or call in to schedule an appointment following d/c. Pt lives in a moblie home with spouse of 49 years; pt plans to return at d/c. Pt adamantly denies anxiety, but does report to currently being sometimes worried about spouse who is home with pneumonia currently. Pt reports that children can check on spouse and was easily redirected in her thought pattern. Pt scored 1 on KIKI assessment. Pt BIMS score 15/15. Pt PHQ9 score 0/2. SW will continue to follow. POOL Gallego
[2024-05-18] MEDS: clonazePAM 0.5 MG Tablet 1 MG PO (20:56)
[2024-05-18] MEDS: Petrolatum 33% Tube 1 APPLIC TOPICAL (20:56)
[2024-05-18] MEDS: Atorvastatin Calcium 40 MG Tablet PO (20:56)
[2024-05-19] VITALS (7 sets, daily range): BP systolic 124–163; BP diastolic 55–84; PULSE 60–69; RESP 16–18; TEMP 36.8–37.1; O2SAT 94–95; BMI 40.6
[2024-05-19] MEDS: Enoxaparin 40 MG/0.4 ML Syringe SC (06:20)
[2024-05-19] MEDS: Metoprolol Tartrate 50 MG Tablet PO ×3 (06:23→20:32)
[2024-05-19] MEDS: Aspirin E.C. 81 MG Tablet PO (08:00)
[2024-05-19] MEDS: Tolterodine Tartrate 4 MG CAP.SA PO (08:00)
[2024-05-19] MEDS: Venlafaxine XR 75 MG Capsule PO (08:00)
[2024-05-19] MEDS: amLODIPine 5 MG Tablet PO (08:01)
[2024-05-19] MEDS: Meloxicam 7.5 MG Tablet PO (08:01)
[2024-05-19] MEDS: Clopidogrel Bisulfate 75 MG Tablet PO (08:01)
[2024-05-19] MEDS: Lisinopril 10 MG Tablet PO (08:02)
--- NOTE | 2024-05-19 08:05 | PN_ITS ---
Subjective Subjective Afebrile VSS -blood pressure yesterday ranged from 157/72 to 194/94. Blood pressure this morning is 124/55......I suspect the improvement is at least in part due to the Klonopin last night. Maintaining appropriate oxygen saturation on RA Oral intake - FOOD good FLUIDS better than yesterday. Discussed with nursing - Reported to nights that she is still not sleeping at night. Last night had Klonopin 1 mg at 9 PM. Also c/o nocturia she is taking Detrol for this. When I saw her yesterday she had no compression on the Legs and they were swollen. Reviewed the THERAPY notes. Medication list reviewed. She had 2 doses of hydralazine as needed yesterday. 1 dose at 6:40 AM and the second dose at approximately 5 PM. Seen by the SW yesterday and adamantly denied being anxious. She scored a 1 on the KIKI assessment. PHQ9 score was 0/2. AM cortisol today is 6.6 which is normal. TSH and T4 have also been normal. C/O heartburn....usually takes Omeprazole at home once a day. Seems in a better mood today. Cooperative with therapy. Denies lightheadedness, cephalgia, vertigo, chest pain, palpitations, shortness of breath at rest, nausea/vomiting/abdominal pain, constipation, dysuria and calf tenderness. Objective Data Objective Data Vital Signs: Vital Signs Temp Pulse Resp BP Pulse Ox O2 Del Method FiO2 98.3 F 60 18 124/55 H 95 Room Air 21 05/19/24 06:00 05/19/24 06:23 05/19/24 06:00 05/19/24 06:23 05/19/24 06:00 05/19/24 06:00 05/17/24 22:05 Oxygen Delivery Method Room Air Weight: 284 lb 2.813 oz Body Mass Index (BMI) 40.6 Intake & Output: Intake and Output for Last 24 Hours 05/17/24 05/18/24 05/19/24 23:59 23:59 23:59 Intake Total 400 / 800 2240 / 2240 200 / 200 Output Total 300 / 650 1300 / 1300 250 / 250 Balance 100 / 150 940 / 940 -50 / -50 Lab / Micro Data 05/18/24 05:49 05/18/24 05:49 Labs: Laboratory Results - last 24 hr 05/18/24 05:49: Sodium 142, Potassium 3.7, Chloride 108 H, Carbon Dioxide 28.0, Anion Gap 6, BUN 22 H, Creatinine 0.79, Estim Creat Clear Calc 97.08, Est GFR (MDRD) Af Amer 93, Est GFR (MDRD) Non-Af 77, BUN/Creatinine Ratio 27.9 H, G lucose 107 H, Hemoglobin A1c 5.5, Calcium 8.9, Total Bilirubin 0.70, AST 13 L, ALT 17, Alkaline Phosphatase 106, Total Protein 5.9 L, Albumin 3.0 L, Globulin 2.9, Albumin/Globulin Ratio 1.0 Social Homelessness:: Sheltered (Not homeless. ) Physical Exam Const alert and no apparent distress Resp clear to auscultation bilaterally Cardio regular rate, regular rhythm, no murmurs and no gallops Cardio Narrative: no ectopy GI normal to inspection, nondistended, normoactive bowel sounds, soft to palpation and non-tender Extremity General Extremity: edema Assessment & Plan Assessment/Plan (1) Debility: (2) Acute left-sided muscle weakness: (3) Ischemic cerebrovascular accident (CVA): (4) Hypertension: QUALIFIERS: Hypertension type: primary hypertension Qualified Code(s): I10 - Essential (primary) hypertension (5) HLD (hyperlipidemia): QUALIFIERS: Hyperlipidemia type: pure hypercholesterolemia Q ualified Code(s): E78.00 - Pure hypercholesterolemia, unspecified (6) Thyroid nodule greater than or equal to 1.5 cm in diameter incidentally noted on imaging study: (7) Right carotid bruit: (8) HANNA (obstructive sleep apnea): (9) Morbid obesity with BMI of 40.0-44.9, adult: (10) Acid reflux: QUALIFIERS: Esophagitis presence: esophagitis presence not specified Qualified Code(s): K21.9 - Gastro-esophageal reflux disease without esophagitis (11) Nocturia more than twice per night: (12) Insomnia: QUALIFIERS: Insomnia type: unspecified Qualified Code(s): G47.00 - Insomnia, unspecified (13) Vulvar itching: (14) Pulmonary hypertension: (15) Left ventricular hypertrophy: (16) Grade I diastolic dysfunction: PLAN: Plan 1. Continue therapy 2. Continue to monitor frequent blood pressures 3. Continue the clonazepam at night. 4. Continue Effexor XR q AM 5. will have her follow up with Dr. May at discharge for vulvar itching.......suspected lichen planus Charges/Coding Visit Charges Inpatient E&M: 77255 Subs Hosp L1
[2024-05-19] MEDS: Pantoprazole Sodium 20 MG Tablet PO ×2 (11:07→20:25)
[2024-05-19] MEDS: Atorvastatin Calcium 40 MG Tablet PO (20:25)
[2024-05-19] MEDS: clonazePAM 0.5 MG Tablet 1 MG PO (20:28)
[2024-05-19] MEDS: Petrolatum 33% Tube 1 APPLIC TOPICAL (20:31)
[2024-05-20] VITALS (8 sets, daily range): BP systolic 114–173; BP diastolic 63–76; PULSE 61–100; RESP 16–18; TEMP 36.2–37.1; O2SAT 94–98; BMI 40.7
[2024-05-20] MEDS: Metoprolol Tartrate 50 MG Tablet PO ×3 (06:11→21:56)
[2024-05-20] MEDS: Enoxaparin 40 MG/0.4 ML Syringe SC (06:13)
[2024-05-20] MEDS: Clopidogrel Bisulfate 75 MG Tablet PO (08:11)
[2024-05-20] MEDS: Tolterodine Tartrate 4 MG CAP.SA PO (08:11)
[2024-05-20] MEDS: Venlafaxine XR 75 MG Capsule PO (08:11)
[2024-05-20] MEDS: Pantoprazole Sodium 20 MG Tablet PO ×2 (08:11→21:56)
[2024-05-20] MEDS: Lisinopril 10 MG Tablet PO (08:11)
[2024-05-20] MEDS: amLODIPine 5 MG Tablet PO (08:11)
[2024-05-20] MEDS: Aspirin E.C. 81 MG Tablet PO (08:12)
[2024-05-20] MEDS: Meloxicam 7.5 MG Tablet PO (08:12)
[2024-05-20] MEDS: Atorvastatin Calcium 40 MG Tablet PO (21:56)
[2024-05-20] MEDS: Petrolatum 33% Tube 1 APPLIC TOPICAL (21:59)
[2024-05-20] MEDS: clonazePAM 0.5 MG Tablet 1 MG PO (21:59)
[2024-05-21] VITALS (8 sets, daily range): BP systolic 140–160; BP diastolic 59–85; PULSE 61–66; RESP 14–18; TEMP 36.6–36.8; O2SAT 96–97; BMI 40.7
[2024-05-21] MEDS: Metoprolol Tartrate 50 MG Tablet PO ×3 (06:43→21:47)
[2024-05-21] MEDS: Enoxaparin 40 MG/0.4 ML Syringe SC (06:43)
[2024-05-21] MEDS: Meloxicam 7.5 MG Tablet PO (09:17)
[2024-05-21] MEDS: Aspirin E.C. 81 MG Tablet PO (09:17)
[2024-05-21] MEDS: Lisinopril 10 MG Tablet PO (09:17)
[2024-05-21] MEDS: Pantoprazole Sodium 20 MG Tablet PO ×2 (09:17→21:46)
[2024-05-21] MEDS: Tolterodine Tartrate 4 MG CAP.SA PO (09:17)
[2024-05-21] MEDS: amLODIPine 5 MG Tablet PO (09:17)
[2024-05-21] MEDS: Venlafaxine XR 75 MG Capsule PO (09:18)
[2024-05-21] MEDS: Clopidogrel Bisulfate 75 MG Tablet PO (09:18)
[2024-05-21] MEDS: Acetaminophen 500 MG Tablet 1000 MG PO (12:19)
--- NOTE | 2024-05-21 14:51 | NURSING ---
Patient transferred to BR w/ assistance. However, have noticed patient self transferring back to chair after utilizing BR. Notified staff to stay with patient for now on when utilizing the BR. Patient educated on importance of staff assisting with transfers.
[2024-05-21] MEDS: Petrolatum 33% Tube 1 APPLIC TOPICAL (21:46)
[2024-05-21] MEDS: clonazePAM 0.5 MG Tablet 1 MG PO (21:46)
[2024-05-21] MEDS: Atorvastatin Calcium 40 MG Tablet PO (21:46)
[2024-05-22] VITALS (10 sets, daily range): BP systolic 140–191; BP diastolic 68–83; PULSE 57–65; RESP 16–18; TEMP 36.6–37.1; O2SAT 96–98; BMI 40.7
[2024-05-22] MEDS: Enoxaparin 40 MG/0.4 ML Syringe SC (06:34)
[2024-05-22] MEDS: Metoprolol Tartrate 50 MG Tablet PO ×3 (06:34→21:36)
[2024-05-22] MEDS: Clopidogrel Bisulfate 75 MG Tablet PO (08:23)
[2024-05-22] MEDS: Venlafaxine XR 75 MG Capsule PO (08:23)
[2024-05-22] MEDS: amLODIPine 5 MG Tablet PO (08:23)
[2024-05-22] MEDS: Tolterodine Tartrate 4 MG CAP.SA PO (08:24)
[2024-05-22] MEDS: Pantoprazole Sodium 20 MG Tablet PO ×2 (08:24→21:36)
[2024-05-22] MEDS: Meloxicam 7.5 MG Tablet PO (08:24)
[2024-05-22] MEDS: Aspirin E.C. 81 MG Tablet PO (08:24)
[2024-05-22] MEDS: Lisinopril 10 MG Tablet PO (08:25)
[2024-05-22] MEDS: hydrALAZINE 50 MG Tablet PO (10:42)
[2024-05-22 13:34] LABS: Bacteria 0 SEEN /hpf (None Seen); Mucous, Urine 0 SEEN /hpf (<or=2+); Red Blood Cells-Urine 0 SEEN /hpf (0-5); Squamous Epithelial Cells - UA 0 SEEN /hpf (5-10); White Blood Cells 0 SEEN /hpf (0-5)
[2024-05-22 13:38] LABS: Color, Urine Yellow (Yellow); Glucose, Dipstick Normal (Normal); Ketone-Dipstick Negative (Negative); Leukocyte Esterase-Dipstick Negative /ul (Negative); Nitrite-Dipstick Negative (Negative); Occult Blood-Urine Negative /ul (Negative); Protein-Dipstick Negative (Negative); Urine Bilirubin Dipstick Negative (Negative); Urine Clarity Clear (Clear); Urine Urobilinogen Normal (Normal)
[2024-05-22] MEDS: clonazePAM 0.5 MG Tablet 1 MG PO (21:35)
[2024-05-22] MEDS: Petrolatum 33% Tube 1 APPLIC TOPICAL (21:35)
[2024-05-22] MEDS: Atorvastatin Calcium 40 MG Tablet PO (21:35)
[2024-05-23] VITALS (10 sets, daily range): BP systolic 164–170; BP diastolic 66–81; PULSE 56–82; RESP 16–18; TEMP 36.5–36.7; O2SAT 95–97; BMI 40.7
[2024-05-23] MEDS: Enoxaparin 40 MG/0.4 ML Syringe SC (06:37)
[2024-05-23] MEDS: Metoprolol Tartrate 50 MG Tablet PO ×2 (06:37→14:27)
[2024-05-23] MEDS: Aspirin E.C. 81 MG Tablet PO (07:58)
[2024-05-23] MEDS: Venlafaxine XR 75 MG Capsule PO (07:58)
[2024-05-23] MEDS: Clopidogrel Bisulfate 75 MG Tablet PO (07:58)
[2024-05-23] MEDS: amLODIPine 5 MG Tablet PO (07:58)
[2024-05-23] MEDS: Pantoprazole Sodium 20 MG Tablet PO ×2 (07:58→21:12)
[2024-05-23] MEDS: Tolterodine Tartrate 4 MG CAP.SA PO (07:59)
[2024-05-23] MEDS: Lisinopril 10 MG Tablet PO (07:59)
[2024-05-23] MEDS: Meloxicam 7.5 MG Tablet PO (07:59)
[2024-05-23] MEDS: hydrALAZINE 50 MG Tablet PO (10:39)
--- NOTE | 2024-05-23 10:51 | PCM.PROGNOTE ---
Subjective Subjective Sophy was seen on team rounds today. Her family was present in the room. Afebrile VSS -blood pressure remains high. Over the past 24 hours the blood pressure has ranged from 140/73 to 191/68. Diastolics are usually within goal but the systolics are elevated. Heart rate is ranged from 57-65. Maintaining appropriate oxygen saturation on RA Oral intake - FOOD good FLUIDS intermittently good....not sure nursing is capturing everything she is drinking because the wt is stable Weight is stable Discussed with nursing - no problems that need addressed Reviewed the THERAPY notes Medication list reviewed. UA was done yesterday because of foul-smelling urine. There are no RBCs, no WBCs and no bacteria. She has been instructed to increase her fluid intake. Still c/o not sleeping well at night. She attributes this to nocturia. She is able to go back to sleep after using the toilet. She tells me that she got up twice last night to use the toilet. This is better than the 4-5 times she c/o at admission to rehab. Her dtr asked a question about the arterial stenosis on the CTA of the head. They were told at [facility] to follow up with vascular surgery. 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 There were no other areas of stenosis. Objective Data Objective Data Vital Signs: Vital Signs Temp Pulse Resp BP Pulse Ox O2 Del Method FiO2 98.0 F 57 L 17 170/80 H 97 Room Air 21 05/23/24 06:35 05/23/24 10:39 05/23/24 06:35 05/23/24 10:39 05/23/24 06:35 05/23/24 06:35 05/17/24 22:05 Oxygen Delivery Method Room Air Weight: 283 lb 11.759 oz Body Mass Index (BMI) 40.7 Intake & Output: Intake and Output for Last 24 Hours 05/21/24 05/22/24 05/23/24 23:59 23:59 23:59 Intake Total 1979 / 1979 930 / 930 400 / 400 Output Total 1875 / 1875 1300 / 1300 1050 / 1050 Balance 105 / 105 -370 / -370 -650 / -650 Lab / Micro Data 05/18/24 05:49 05/24/24 07:18 Labs: Laboratory Results - last 24 hr 05/22/24 13:25: Urine Color Yellow, Urine Clarity Clear, Urine pH 6.0, Ur Specific [place] 1.010, Urine Protein Negative, Urine Glucose (UA) Normal, Urine Ketones Negative, Urine Occult Blood Negative, Urine Nitrite Negative, Urine Bilirubin Negative, Urine Urobilinogen Normal, Ur Leukocyte Esterase Negative, Urine RBC 0 SEEN, Urine WBC 0 SEEN, Ur Squamous Epith Cells 0 SEEN, Urine Bacteria 0 SEEN, Urine Mucus 0 SEEN Social Homelessness:: Sheltered (Not homeless. ) Physical Exam Const alert and no apparent distress Constitutional Narrative: Appears sleepy and fatigued today. General Appearance: well developed HEENT normocephalic and head/scalp atraumatic Eyes PERRL and EOMs intact bilaterally Eyes Narrative: No scleral icterus, no conjunctival injection, no discharge from the eyes. Neck supple Neck Narrative: There is a soft right carotid bruit present. Elliott best at the base of the neck General: trachea midline Resp clear to auscultation bilaterally Effort and Inspection: Negative for tachypneic Auscultation: diminished lung sounds bilateral (More noticeable in the bases the lungs and I suspect this has a lot to do with body habitus and poor effort.) lower Cardio regular rate, regular rhythm, no murmurs and no gallops Cardio Narrative: no ectopy Rate: Negative for bradycardia or tachycardic GI normal to inspection, nondistended, normoactive bowel sounds, soft to palpation and non-tender GI Narrative: Obese, no guarding with palpation. Extremity no calf tenderness Extremity Narrative: stasis dermatitis General Extremity: edema Skin no wounds, no jaundice, no petechiae and no mottling Skin Narrative: She is not willing to allow me to examine the vulva at this time. I explained that I can't treat if I can not examine and she would need to go back to Dr. Ha to have a vulvar biopsy so that a definitive DX could be made. She has stasis dermatitis of both LE's and edema due to chronic venous insufficiency. General Skin Exam: no breakdown and dry skin Rashes: no rashes Neuro CN's II-XII intact bilaterally Neuro Narrative: Weakness of the LUE and the LLE. intact finger nose BL but, can not do heel em due to body habitus. No extinction. Intact sensation to pinprick throughout but, c/o tingling in the L hand that is new since the stroke. No visual field cuts. tongue protrudes on the midline. Occasional trouble finding a word. No significant dysarthria. Psych thought process normal, cooperative and denies suicidal ideation Psych Narrative: Has not been taking care of herself. Ignores problems she has and does not follow up. she has insomnia and admits to worrying a lot. Not very forthcoming with hx. Gets somewhat defensive when you ask her why she has not followed up to get chronic conditions treated. Prefers I would forget she said anything about the vulvar itching rather than submit to a pelvic exam. Appearance: appropriate Attitude: No agitated Mood & Affect: anxious Thought Content: No hallucination(s) Assessment & Plan Assessment/Plan (1) Debility: (2) Acute left-sided muscle weakness: (3) Ischemic cerebrovascular accident (CVA): (4) Hypertension: QUALIFIERS: Hypertension type: primary hypertension Qualified Code(s): I10 - Essential (primary) hypertension (5) HLD (hyperlipidemia): QUALIFIERS: Hyperlipidemia type: pure hypercholesterolemia Qualified Code(s): E78.00 - Pure hypercholesterolemia, unspecified (6) Thyroid nodule greater than or equal to 1.5 cm in diameter incidentally noted on imaging study: PLAN: Workup will be deferred to her PCP. (7) Right carotid bruit: (8) HANNA (obstructive sleep apnea): (9) Morbid obesity with BMI of 40.0-44.9, adult: (10) Nocturia more than twice per night: PLAN: Plan 1. Continue therapy 2. Change the metoprolol dosing to metoprolol XL 100 mg every morning and 50 mg nightly. Continue to monitor frequent blood pressures with a goal being less than 130/80. 3. Check a BMP in the a.m. 4. If the BP remains uncontrolled with the changes will increase the Lisinopril. 5. will schedule and appt for her to follow up with Dr. Vidal following DC from rehab regarding the R vertebral artery stenosis. Charges/Coding Visit Charges Inpatient E&M: 73101 Subs Hosp L2
--- NOTE | 2024-05-23 12:40 | CASEMGMT ---
Social Work IDT met with patient, , dtr and son for Team meeting. Discussed patient's progress in PT/OT/ST/SN. Educated to [facility] insurance with [employer] 05/27, updating every 7 days, and IDT is responsible for setting DC date. Pt's goal is to return home with . uses cane and cannot physically assist. Son and dtr work deputy clerk of superior court. to order sleep study at [place] and this worker to coordinate overnight O2. HELENE provided brochure and educated to stroke support group. Will ReTeam weekly. HELENE will continue to follow for DC planning. SHELLY Ochoa ESTATE TAX EXAMINER
[2024-05-23] MEDS: Acetaminophen 500 MG Tablet 1000 MG PO (14:33)
--- NOTE | 2024-05-23 15:32 | CHAPLAIN ---
Type of Pastoral Visit _x__ Initial Visit ___ Follow-up Visit ___ On-call Visit ___ General Patient Visit ___ Spiritual Assessment ___ Family Conference ___ Bereavement ___ Rapid Response ___ Code Blue ___ Other (describe below) Pastoral Care Referral From _x__ Patient ___ Family ___ Nurse ___ Physician ___ Slag Wheeler ___ Carton Making Machinist ___ Other (describe below) Sacrament/Intervention _x__ Active listening ___ Anointing ___ Tenriism ___ Bereavement ___ Communion _x__ Chiquita exploration ___ _x__ Life review _x__ Prayer ___ Reconciliation ___ Sacrament of Sick _x__ Supportive presence ___ Wedding ___ Other (describe below) Pastoral Comments patient is an acquaintance from the past for this paraeducator; pt talks about her health, how she is progressing, her feelings, and gives updates on her family; pt has concern for her that is also having health difficulties lately as is still at home; pt finds shantell in her grandchildren and is currently distress that she is missing her granddaughter's volleyball games; pt welcomes time to talk and the prayers of support
[2024-05-23] MEDS: clonazePAM 0.5 MG Tablet 1 MG PO (21:11)
[2024-05-23] MEDS: Petrolatum 33% Tube 1 APPLIC TOPICAL (21:12)
[2024-05-23] MEDS: Atorvastatin Calcium 40 MG Tablet PO (21:12)
[2024-05-23] MEDS: Metoprolol(XL)Succ 50 MG Tablet PO (21:16)
[2024-05-24] VITALS (11 sets, daily range): BP systolic 140–189; BP diastolic 55–92; PULSE 54–63; RESP 16–18; TEMP 36.3–36.5; O2SAT 97; BMI 40.7
--- NOTE | 2024-05-24 06:12 | NURSING ---
At 05:55 pt was being tranfered into the shower for a.m. ADLs by APPEALS ASSISTANT. Pt had grippie socks on but upon turning to sit on shower chair, pt started to slip and APPEALS ASSISTANT guided pt to floor. Pt denies hitting head and landed on buttocks. RN assessed pt and VS taken. T- 97.4, HR- 63, BP-189/92, and Spo2- 97%, and Resp- 16. OT assisted RN, and APPEALS ASSISTANT to assist pt into wheelchair. [id number]
[2024-05-24] MEDS: Enoxaparin 40 MG/0.4 ML Syringe SC (06:18)
[2024-05-24] MEDS: Acetaminophen 500 MG Tablet 1000 MG PO ×2 (06:19→21:44)
[2024-05-24 08:13] LABS: Anion Gap 6 (5-15); BUN 19 mg/dL (7-18); BUN/Creat Ratio 24.6 RATIO (10-20); Chloride 108 mmol/L (98-107); Creatinine, Serum 0.77 mg/dL (0.55-1.02); EST Glomerular Filtration Rate 79 mL/min (>60); Est Glom Filt Rate - Afr Amer 95 mL/min (>60); Glucose 94 mg/dL (74-106); Potassium 3.5 mmol/L (3.5-5.1); Sodium Level 140 mmol/L (136-145)
[2024-05-24] MEDS: amLODIPine 5 MG Tablet PO (09:14)
[2024-05-24] MEDS: Meloxicam 7.5 MG Tablet PO (09:14)
[2024-05-24] MEDS: Venlafaxine XR 75 MG Capsule PO (09:14)
[2024-05-24] MEDS: Lisinopril 10 MG Tablet PO (09:14)
[2024-05-24] MEDS: Aspirin E.C. 81 MG Tablet PO (09:14)
[2024-05-24] MEDS: Pantoprazole Sodium 20 MG Tablet PO ×2 (09:14→21:30)
[2024-05-24] MEDS: Tolterodine Tartrate 4 MG CAP.SA PO (09:14)
[2024-05-24] MEDS: Clopidogrel Bisulfate 75 MG Tablet PO (09:14)
[2024-05-24] MEDS: Metoprolol(XL)Succ 100 MG Tablet PO (09:14)
--- NOTE | 2024-05-24 09:15 | PN_ITS ---
Subjective Subjective Afebrile VSS - BP this AM after she got bcak in bed after the fall was much better at 140/55. She was transitioned to Metoprolol XL BID last night. Heart rate over the past 24 hours has ranged from 54-82. Maintaining appropriate oxygen saturation on RA Oral intake - FOOD good FLUIDS good Discussed with nursing - She had a fall getting into the shower today. She slid off the chair onto her buttocks and is now c/o low back pain. Reviewed the THERAPY notes Medication list reviewed. Sophy is c/o pain in the low back. She denies radiation into the legs. She initially told me that she had hip pain also but, then denied and said the pain was primarily in the low back. Denies lightheadedness. NO CP or SOB at rest. All lab today was personally reviewed. Sodium is 140 and the potassium is 3.5. The BUN is 19 with a creatinine of 0.77 which is stable. Denies cephalgia, lightheadedness, chest pain, shortness of breath at rest, palpitations, nausea/vomiting/abdominal pain, dysuria and calf tenderness. Objective Data Objective Data Vital Signs: Vital Signs Temp Pulse Resp BP Pulse Ox O2 Del Method FiO2 97.4 F L 54 L 16 140/55 H 97 Room Air 21 05/24/24 06:23 05/24/24 06:23 05/24/24 06:23 05/24/24 06:23 05/24/24 06:23 05/24/24 06:23 05/17/24 22:05 Oxygen Delivery Method Room Air Weight: 283 lb 11.759 oz Body Mass Index (BMI) 40.7 Intake & Output: Intake and Output for Last 24 Hours 05/22/24 05/23/24 05/24/24 23:59 23:59 23:59 Intake Total 930 / 930 1420 / 1420 100 / 100 Output Total 1300 / 1300 1950 / 1950 500 / 500 Balance -370 / -370 -530 / -530 -400 / -400 Lab / Micro Data 05/18/24 05:49 05/24/24 07:18 Labs: Laboratory Results - last 24 hr 05/24/24 07:18: Sodium 140, Potassium 3.5, Chloride 108 H, Carbon Dioxide 26.0, Anion Gap 6, BUN 19 H, Creatinine 0.77, Estim Creat Clear Calc 97.00, Est GFR (MDRD) Af Amer 95, Est GFR (MDRD) Non-Af 79, BUN/Creatinine Ratio 24.6 H, Glucose 94, Calcium 9.0 Social Homelessness:: Sheltered (Not homeless. ) Physical Exam Const alert and oriented x3 Constitutional Narrative: appears uncomfortable sitting in the chair and is moving around trying to get comfortable. General Appearance: cooperative Resp clear to auscultation bilaterally Resp Narrative: I suspect the BS's are somewhat diminished due to body habitus Auscultation: diminished lung sounds Cardio regular rate, regular rhythm and no gallops Cardio Narrative: No ectopy GI normal to inspection, nondistended, normoactive bowel sounds, soft to palpation and non-tender Extremity no calf tenderness Extremity Narrative: I examined the low back. there is no bruising and no abrasions. She has some paravertebral spasm in the lumbar area. She has tenderness with palpation of the lumbar paravertebral area. No pain with percussion over the vertebrae. No radiation of the pain into the legs and she has no paresthesias. Denies hip pain. Assessment & Plan Assessment/Plan (1) Debility: (2) Acute left-sided muscle weakness: (3) Ischemic cerebrovascular accident (CVA): (4) Hypertension: QUALIFIERS: Hypertension type: primary hypertension Qualified Code(s): I10 - Essential (primary) hypertension (5) HLD (hyperlipidemia): QUALIFIERS: Hyperlipidemia type: pure hypercholesterolemia Q ualified Code(s): E78.00 - Pure hypercholesterolemia, unspecified (6) Thyroid nodule greater than or equal to 1.5 cm in diameter incidentally noted on imaging study: PLAN: Workup will be deferred to her PCP. (7) Right carotid bruit: (8) HANNA (obstructive sleep apnea): (9) Morbid obesity with BMI of 40.0-44.9, adult: (10) Nocturia more than twice per night: PLAN: She is sleeping better with the addition of the Klonopin to the drug regimen and is now getting up only twice a night. PLAN: Plan 1. Continue therapy 2. Obtain x-rays of the lumbosacral spine, BL hips and the pelvis 3. Zanaflex 2 mg p.o. every 8 hours as needed for muscle spasm 4. Tramadol 100 mg p.o. 3 times daily as needed pain 4-10 5. Continue meloxicam but no increase in the dose due to recent CVA 6. Can have ice and/or K pad to the low back for comfort. 7. Potassium is low normal at 3.5. She is not on a diuretic. Charges/Coding Visit Charges Inpatient E&M: 88792 Subs Hosp L1
--- NOTE | 2024-05-24 09:40 | RAD_ITS ---
STUDY: X-RAY - LUMBAR SPINE REASON FOR EXAM: Female, 69 years old. Pain post fall TECHNIQUE: 5 view(s) of the lumbar spine were obtained. COMPARISON: None FINDINGS: Normal lumbar lordosis. There is a dextroscoliosis of the lumbar spine. There is multilevel endplate spondylosis of the lumbar vertebrae. There is multi-level degenerative disc disease with multi-level disc space narrowing. There is no demonstrated fracture. There is atherosclerotic calcification of the abdominal aorta without a demonstrated aneurysm. RAD/L/S Spine Min 4 Views IMPRESSION: Degenerative changes of the spine, as detailed above. Electronically Signed: Enoc Arias MD at 18:12 EDT ,
--- NOTE | 2024-05-24 09:40 | RAD_ITS ---
STUDY: X-RAY - PELVIS AND BILATERAL HIPS REASON FOR EXAM: Female, 69 years old. Pain post fall onto her buttocks TECHNIQUE: AP view of the pelvis.? 2 views of the right hip, and 2 views of the left hip were obtained. COMPARISON: None. FINDINGS: There is a normal bowel gas pattern. Normal visualized soft tissue structures. Normal bilateral iliac wings, sacroiliac joints and visualized sacrum. Normal bilateral superior and inferior pubic rami. There is degenerative change of the pubic symphysis. Normal bilateral ischial tuberosities. There are osteoarthritic changes of the right femoral head with marginal osteophyte formation. There is osteoarthritic spur formation of the right acetabular rim. There is moderate articular joint space narrowing of the right hip. There are osteoarthritic changes of the left femoral head with marginal osteophyte formation. There is osteoarthritic spur formation of the left acetabular rim. There is moderate articular joint space narrowing of the left hip. There is no acute fracture seen. RAD/Hips B/L min 2 views w/ Pelvis IMPRESSION: Degenerative change. No acute fracture seen. Electronically Signed: Enoc Arias MD at 18:15 EDT ,
[2024-05-24] MEDS: traMADol 50 MG Tablet 100 MG PO (10:52)
[2024-05-24] MEDS: hydrALAZINE 50 MG Tablet PO (17:02)
[2024-05-24] MEDS: Petrolatum 33% Tube 1 APPLIC TOPICAL (21:28)
[2024-05-24] MEDS: clonazePAM 0.5 MG Tablet 1 MG PO (21:28)
[2024-05-24] MEDS: Atorvastatin Calcium 40 MG Tablet PO (21:30)
[2024-05-24] MEDS: Metoprolol(XL)Succ 50 MG Tablet PO (21:40)
[2024-05-25] VITALS (7 sets, daily range): BP systolic 120–162; BP diastolic 70–82; PULSE 53–72; RESP 15–17; TEMP 36.6; O2SAT 95–97; BMI 40.7
[2024-05-25] MEDS: Enoxaparin 40 MG/0.4 ML Syringe SC (06:20)
[2024-05-25] MEDS: Venlafaxine XR 75 MG Capsule PO (07:45)
[2024-05-25] MEDS: Clopidogrel Bisulfate 75 MG Tablet PO (07:45)
[2024-05-25] MEDS: Meloxicam 7.5 MG Tablet PO (07:45)
[2024-05-25] MEDS: Metoprolol(XL)Succ 100 MG Tablet PO (07:45)
[2024-05-25] MEDS: Pantoprazole Sodium 20 MG Tablet PO ×2 (07:45→22:04)
[2024-05-25] MEDS: Lisinopril 10 MG Tablet PO ×2 (07:45→22:24)
[2024-05-25] MEDS: Tolterodine Tartrate 4 MG CAP.SA PO (07:46)
[2024-05-25] MEDS: amLODIPine 5 MG Tablet PO (07:46)
[2024-05-25] MEDS: Aspirin E.C. 81 MG Tablet PO (07:46)
--- NOTE | 2024-05-25 11:09 | PN_ITS ---
Subjective Subjective Afebrile VSS -blood pressure over the past 24 hours has ranged from 140/55 to 170/65. Heart rate is ranged from 55 to 63. She has no lightheadedness. Current antihypertensives include Norvasc 5 mg daily, lisinopril 10 mg daily, metoprolol XL 100 mg every morning and 50 mg nightly and as needed hydralazine. She needed only 1 dose of hydralazine yesterday. Denies cough with the lisinopril. Maintaining appropriate oxygen saturation on RA Oral intake - FOOD good FLUIDS good Discussed with nursing - no problems that need addressed Reviewed the THERAPY notes Medication list reviewed. I reviewed the radiology report from the x-rays done yesterday. She has dextroscoliosis of the lumbar spine. There is multilevel endplate spondylosis of the lumbar vertebrae. There is multilevel degenerative disc disease with multilevel disc space narrowing. There was no fracture. There is atherosclerotic calcification of the abdominal aorta with no evidence of aneurysm. There are osteoarthritic changes of both femoral heads with marginal osteophyte formation. There is osteoarthritic spur formation of both the right and left acetabular rims. There is also moderate articular joint space narrowing of the left and right hip. There were no fractures seen. Sophy tells me that her back pain is better today than it was yesterday and she feels like the medications are helping. She denies radicular pain into the legs. She also denies paresthesias. She denies cephalgia, lightheadedness, chest pain, shortness of breath, cough, abdominal pain, dysuria and calf tenderness. She has noticed that her appetite is decreased since she has been on the Effexor. She has had no adverse side effects. We discussed whether or not to increase the Effexor. She wants to do everything possible to help her lose weight. She is agreeable to increasing the Effexor dose to 150 mg daily in the a.m. while she is on rehab to see if she develops any side effects. We also discussed the Klonopin at night. She was not sleeping well on trazodone at home and was getting up 4-5 times a night. Currently she gets up twice at night to urinate which is much better. She would like to try decreasing the Klonopin to 0.5 mg to see if she continues to sleep well and would consider getting rid of Klonopin prior to discharge and reinstituting trazodone for insomnia. She is less anxious and less defensive than she was at admission and we are in a better place at this time. Objective Data Objective Data Vital Signs: Vital Signs Temp Pulse Resp BP Pulse Ox O2 Del Method FiO2 97.8 F 54 L 15 155/74 H 95 Room Air 21 05/25/24 06:00 05/25/24 10:00 05/25/24 06:00 05/25/24 10:00 05/25/24 06:00 05/25/24 06:00 05/17/24 22:05 Oxygen Delivery Method Room Air Weight: 283 lb 11.759 oz Body Mass Index (BMI) 40.7 Intake & Output: Intake and Output for Last 24 Hours 05/23/24 05/24/24 05/25/24 23:59 23:59 23:59 Intake Total 1420 / 1420 1770 / 1770 100 / 100 Output Total 1950 / 1950 1450 / 1450 100 / 100 Balance -530 / -530 320 / 320 0 / 0 Lab / Micro Data 05/18/24 05:49 05/24/24 07:18 Radiography Diagnostic Testing: Radiology Impression Hip/Pelvis X-Ray 05/24/24 09:40 IMPRESSION: Degenerative change. No acute fracture seen. Electronically Signed: Enoc Arias MD at 18:15 EDT , Lumbar Spine X-Ray 05/24/24 09:40 IMPRESSION: Degenerative changes of the spine, as detailed above. Electronically Signed: Enoc Arias MD at 18:12 EDT , Social Homelessness:: Sheltered (Not homeless. ) Physical Exam Const alert and oriented x3 Constitutional Narrative: appears uncomfortable sitting in the chair and is moving around trying to get comfortable. General Appearance: cooperative HEENT normocephalic and head/scalp atraumatic Eyes PERRL and EOMs intact bilaterally Eyes Narrative: No scleral icterus, no conjunctival injection, no discharge from the eyes. Neck supple Neck Narrative: There is a soft right carotid bruit present. [place] best at the base of the neck General: trachea midline Resp clear to auscultation bilaterally Resp Narrative: I suspect the BS's are somewhat diminished due to body habitus Effort and Inspection: Negative for tachypneic Auscultation: diminished lung sounds Cardio regular rate, regular rhythm and no gallops Cardio Narrative: No ectopy Rate: Negative for bradycardia or tachycardic GI normal to inspection, nondistended, normoactive bowel sounds, soft to palpation and non-tender GI Narrative: Obese, no guarding with palpation. Extremity no calf tenderness Extremity Narrative: I examined the low back. there is no bruising and no abrasions. She has some paravertebral spasm in the lumbar area. She has tenderness with palpation of the lumbar paravertebral area. No pain with percussion over the vertebrae. No radiation of the pain into the legs and she has no paresthesias. Denies hip pain. General Extremity: edema bilateral Skin no wounds, no jaundice, no petechiae and no mottling Skin Narrative: She is not willing to allow me to examine the vulva at this time. I explained that I can't treat if I can not examine and she would need to go back to Dr. Ha to have a vulvar biopsy so that a definitive DX could be made. She has stasis dermatitis of both LE's and edema due to chronic venous insufficiency. General Skin Exam: no breakdown and dry skin Rashes: no rashes Neuro CN's II-XII intact bilaterally Neuro Narrative: Weakness of the LUE and the LLE. intact finger nose BL but, can not do heel em due to body habitus. No extinction. Intact sensation to pinprick throughout but, c/o tingling in the L hand that is new since the stroke. No visual field cuts. tongue protrudes on the midline. Occasional trouble finding a word. No significant dysarthria. Psych thought process normal, cooperative and denies suicidal ideation Psych Narrative: Sleeping better at night. She gets up to urinate twice during the night but can go back to sleep easily. She is less visibly anxious and less defensive than she was at admission. She is not tearful. She is motivated to get better and to lose weight. Appearance: appropriate Attitude: No agitated Mood & Affect: anxious Thought Content: No hallucination(s) Assessment & Plan Assessment/Plan (1) Debility: (2) Acute left-sided muscle weakness: (3) Ischemic cerebrovascular accident (CVA): (4) HLD (hyperlipidemia): QUALIFIERS: Hyperlipidemia type: pure hypercholesterolemia Q ualified Code(s): E78.00 - Pure hypercholesterolemia, unspecified (5) Thyroid nodule greater than or equal to 1.5 cm in diameter incidentally noted on imaging study: PLAN: Workup will be deferred to her PCP. TSH and T4 were normal prior to admission to rehab. (6) Right carotid bruit: (7) HANNA (obstructive sleep apnea): (8) Uncontrolled hypertension: PLAN: Plan 1. Continue therapy 2. Decrease Klonopin to 0.5 mg at bedtime 3. Increase Effexor XR to 150 mg daily 4. Increase lisinopril to 10 mg twice daily 5. If insomnia recurs as we taper Klonopin will reinstitute trazodone and use 150 mg at bedtime. Charges/Coding Visit Charges Inpatient E&M: 93481 Subs Hosp L1
[2024-05-25] MEDS: Atorvastatin Calcium 40 MG Tablet PO (22:04)
[2024-05-25] MEDS: clonazePAM 0.5 MG Tablet PO (22:04)
[2024-05-25] MEDS: Metoprolol(XL)Succ 50 MG Tablet PO (22:18)
[2024-05-25] MEDS: Acetaminophen 500 MG Tablet 1000 MG PO (22:22)
[2024-05-25] MEDS: Petrolatum 33% Tube 1 APPLIC TOPICAL (22:24)
[2024-05-26] VITALS (8 sets, daily range): BP systolic 133–189; BP diastolic 52–89; PULSE 51–66; RESP 16–17; TEMP 36.5–36.8; O2SAT 94–97; BMI 40.7
[2024-05-26] MEDS: Enoxaparin 40 MG/0.4 ML Syringe SC (05:55)
[2024-05-26] MEDS: hydrALAZINE 50 MG Tablet PO (06:01)
[2024-05-26] MEDS: Metoprolol(XL)Succ 100 MG Tablet PO (07:38)
[2024-05-26] MEDS: amLODIPine 5 MG Tablet PO (07:38)
[2024-05-26] MEDS: Pantoprazole Sodium 20 MG Tablet PO ×2 (07:38→21:13)
[2024-05-26] MEDS: Venlafaxine XR 150 MG Capsule PO (07:38)
[2024-05-26] MEDS: Clopidogrel Bisulfate 75 MG Tablet PO (07:39)
[2024-05-26] MEDS: Lisinopril 10 MG Tablet PO ×2 (07:39→21:12)
[2024-05-26] MEDS: Meloxicam 7.5 MG Tablet PO (07:39)
[2024-05-26] MEDS: Tolterodine Tartrate 4 MG CAP.SA PO (07:39)
[2024-05-26] MEDS: Aspirin E.C. 81 MG Tablet PO (07:39)
[2024-05-26] MEDS: Metoprolol(XL)Succ 50 MG Tablet PO (21:12)
[2024-05-26] MEDS: clonazePAM 0.5 MG Tablet PO (21:12)
[2024-05-26] MEDS: Atorvastatin Calcium 40 MG Tablet PO (21:12)
[2024-05-26] MEDS: Petrolatum 33% Tube 1 APPLIC TOPICAL (21:13)
[2024-05-27] VITALS (10 sets, daily range): BP systolic 137–195; BP diastolic 62–88; PULSE 56–105; RESP 16; TEMP 36.4–37; O2SAT 94–98; BMI 40.5
[2024-05-27] MEDS: Enoxaparin 40 MG/0.4 ML Syringe SC (06:25)
[2024-05-27] MEDS: Meloxicam 7.5 MG Tablet PO (07:50)
[2024-05-27] MEDS: Tolterodine Tartrate 4 MG CAP.SA PO (07:50)
[2024-05-27] MEDS: Aspirin E.C. 81 MG Tablet PO (07:50)
[2024-05-27] MEDS: Clopidogrel Bisulfate 75 MG Tablet PO (07:50)
[2024-05-27] MEDS: Lisinopril 10 MG Tablet PO ×2 (07:50→21:34)
[2024-05-27] MEDS: Venlafaxine XR 150 MG Capsule PO (07:50)
--- NOTE | 2024-05-27 08:59 | PCM.PROGNOTE ---
Subjective Subjective Afebrile VSS -blood pressure at at bedtime was 145/62. The blood pressure this a.m. is 166/76. Heart rate was recorded as 105 this morning.....this is unusual. HR has been ranging from 55-70. Maintaining appropriate oxygen saturation on RA Oral intake - FOOD good FLUIDS has been in negative fluid balance daily. I suspect the nurses are not adequately capturing all her oral intake. Weight is not significantly changed. Discussed with nursing - no problems that need addressed. Nursing states that she is sleeping well. Reviewed the THERAPY notes Medication list reviewed. She received 1 dose of hydralazine as needed on 05/26/2024 at 6 AM in the morning. Has not taken a Tramadol since 05/24.......has taken only 1 dose since ordered. Has not taken any Zanaflex since it was ordered on 05/24/24. No Tylenol has been taken since 05/25/2024. Current antihypertensives include metoprolol XL 100 mg every morning and 50 mg nightly, lisinopril 10 mg twice daily and amlodipine 5 mg daily. BP's are not yet at goal. Not complaining of back pain today. No cough. No CP, SOB, N/V/abd pain, no dysuria and no calf pain. Sophy received word that her mother was taken to the ED today and the BP skyrocketed again. Blood pressure at 4 PM today was 195/88. She has received 2 doses of hydralazine 50 mg today. I had a discussion with Sophy and her family and I feel we are not going to be able to control the BP without controlling her anxiety. The Klonopin works to help bring down the BP but, she would prefer to try something that is not addictive. Objective Data Objective Data Vital Signs: Vital Signs Temp Pulse Resp BP Pulse Ox O2 Del Method FiO2 98.6 F 105 H 16 166/76 H 97 Room Air 21 05/27/24 06:00 05/27/24 06:00 05/27/24 06:00 05/27/24 06:00 05/27/24 06:00 05/27/24 06:00 05/17/24 22:05 Oxygen Delivery Method Room Air Weight: 282 lb 4 oz Body Mass Index (BMI) 40.5 Intake & Output: Intake and Output for Last 24 Hours 0905/26/24 05/27/24 23:59 23:59 23:59 Intake Total 1100 / 1100 1600 / 1600 240 / 240 Output Total 1400 / 1700 0 / 0 700 / 700 Balance -300 / -600 -450 / -650 -460 / -460 Lab / Micro Data 05/18/24 05:49 05/30/24 05:12 Social Homelessness:: Sheltered (Not homeless. ) Physical Exam Const alert and oriented x3 General Appearance: cooperative HEENT Mouth: dry mucous membranes Resp clear to auscultation bilaterally Resp Narrative: I suspect the BS's are somewhat diminished due to body habitus Effort and Inspection: Negative for tachypneic Auscultation: diminished lung sounds Cardio regular rate, regular rhythm and no gallops Cardio Narrative: No ectopy HR ranges from 54-63. Denies lightheadedness. GI normal to inspection, nondistended, normoactive bowel sounds, soft to palpation and non-tender GI Narrative: Obese, no guarding with palpation. Extremity no calf tenderness Skin General Skin Exam: no breakdown Rashes: no rashes Neuro CN's II-XII intact bilaterally Neuro Narrative: persistent unilateral weakness.......but, strength is improving with therapy. Walked with a SC today but, unsteady with LOB near the end of the therapy session. Assessment & Plan Assessment/Plan (1) Debility: (2) Acute left-sided muscle weakness: (3) Ischemic cerebrovascular accident (CVA): (4) HLD (hyperlipidemia): QUALIFIERS: Hyperlipidemia type: pure hypercholesterolemia Qualified Code(s): E78.00 - Pure hypercholesterolemia, unspecified (5) Thyroid nodule greater than or equal to 1.5 cm in diameter incidentally noted on imaging study: (6) Right carotid bruit: (7) HANNA (obstructive sleep apnea): (8) Uncontrolled hypertension: (9) Hypokalemia: PLAN: Plan 1. Continue therapy 2. Increase the Amlodipine to 5 mg BID. Continue as needed hydralazine. 3. Check a BMP on Thursday 4. Start Buspar 5 mg TID - IF the BP remains increased she is agreeable to using Klonopin to control anxiety. 5. Go back down to 75 mg of Effexor XR.....Consider changing to Sertraline as the Effexor has the potential of increasing BP. I think her main problem is anxiety and not depression. I once again recommended psychotherapy at [facility] to help with anxiety Charges/Coding Visit Charges Inpatient E&M: 12770 Subs Hosp L1
[2024-05-27] MEDS: amLODIPine 5 MG Tablet PO (09:32)
[2024-05-27] MEDS: Metoprolol(XL)Succ 100 MG Tablet PO (09:32)
[2024-05-27] MEDS: hydrALAZINE 50 MG Tablet PO ×2 (09:33→16:07)
[2024-05-27] MEDS: Pantoprazole Sodium 20 MG Tablet PO ×2 (09:34→21:34)
--- NOTE | 2024-05-27 16:08 | CHAPLAIN ---
Type of Pastoral Visit ___ Initial Visit _x__ Follow-up Visit ___ On-call Visit ___ General Patient Visit ___ Spiritual Assessment ___ Family Conference ___ Bereavement ___ Rapid Response ___ Code Blue ___ Other (describe below) Pastoral Care Referral From _x__ Patient ___ Family ___ Nurse ___ Physician ___ Rotary Driller Helper ___ Retail Property Manager ___ Other (describe below) Sacrament/Intervention ___ Active listening ___ Anointing ___ Samaritan ___ Bereavement ___ Communion ___ Chiquita exploration ___ ___ Life review ___ Prayer ___ Reconciliation ___ Sacrament of Sick _x__ Supportive presence ___ Wedding ___ Other (describe below) Pastoral Comments brief follow up visit to check on this patient; pt says that she has called the MARKETING PROJECT SPECIALIST for assistance to the bathroom; pt reviews her current progress and what is happening with her granddaughter in sports; MARKETING PROJECT SPECIALIST came and assisted patient so the visit ended
[2024-05-27] MEDS: traZODone 50 MG Tablet 150 MG PO (21:33)
[2024-05-27] MEDS: busPIRone 5 MG Tablet PO (21:34)
[2024-05-27] MEDS: Metoprolol(XL)Succ 50 MG Tablet PO (21:34)
[2024-05-27] MEDS: Atorvastatin Calcium 40 MG Tablet PO (21:38)
[2024-05-27] MEDS: Petrolatum 33% Tube 1 APPLIC TOPICAL (21:39)
[2024-05-28] VITALS (7 sets, daily range): BP systolic 115–160; BP diastolic 53–65; PULSE 52–60; RESP 16; TEMP 35.8–36.9; O2SAT 94–96; BMI 40.5
[2024-05-28] MEDS: busPIRone 5 MG Tablet PO ×3 (05:42→21:31)
[2024-05-28] MEDS: Enoxaparin 40 MG/0.4 ML Syringe SC (05:42)
[2024-05-28] MEDS: Meloxicam 7.5 MG Tablet PO (08:06)
[2024-05-28] MEDS: Lisinopril 10 MG Tablet PO ×2 (08:06→21:31)
[2024-05-28] MEDS: Tolterodine Tartrate 4 MG CAP.SA PO (08:06)
[2024-05-28] MEDS: Clopidogrel Bisulfate 75 MG Tablet PO (08:07)
[2024-05-28] MEDS: Aspirin E.C. 81 MG Tablet PO (08:07)
[2024-05-28] MEDS: Metoprolol(XL)Succ 100 MG Tablet PO (09:05)
[2024-05-28] MEDS: amLODIPine 5 MG Tablet PO (09:05)
[2024-05-28] MEDS: Pantoprazole Sodium 20 MG Tablet PO ×2 (09:05→21:31)
[2024-05-28] MEDS: Venlafaxine XR 75 MG Capsule PO (09:06)
[2024-05-28] MEDS: Atorvastatin Calcium 40 MG Tablet PO (21:31)
[2024-05-28] MEDS: traZODone 50 MG Tablet 150 MG PO (21:31)
[2024-05-28] MEDS: Metoprolol(XL)Succ 50 MG Tablet PO (21:32)
[2024-05-28] MEDS: Petrolatum 33% Tube 1 APPLIC TOPICAL (21:35)
[2024-05-29 00:37] VITALS: BMI 40.5
[2024-05-29 06:00] VITALS: BP 163/70; PULSE 63; RESP 18; TEMP 36.8; O2SAT 97
[2024-05-29] MEDS: busPIRone 5 MG Tablet PO ×3 (06:18→21:29)
[2024-05-29] MEDS: Enoxaparin 40 MG/0.4 ML Syringe SC (06:18)
[2024-05-29] MEDS: Tolterodine Tartrate 4 MG CAP.SA PO (07:52)
[2024-05-29] MEDS: Aspirin E.C. 81 MG Tablet PO (07:52)
[2024-05-29] MEDS: Venlafaxine XR 75 MG Capsule PO (07:53)
[2024-05-29] MEDS: Meloxicam 7.5 MG Tablet PO (07:53)
[2024-05-29] MEDS: Lisinopril 10 MG Tablet PO ×2 (07:56→21:29)
[2024-05-29] MEDS: Pantoprazole Sodium 20 MG Tablet PO ×2 (09:23→21:29)
[2024-05-29] MEDS: amLODIPine 5 MG Tablet PO (09:24)
[2024-05-29] MEDS: Acetaminophen 500 MG Tablet 1000 MG PO ×2 (09:24→20:46)
[2024-05-29 09:25] VITALS: BP 160/63; PULSE 60
[2024-05-29] MEDS: Clopidogrel Bisulfate 75 MG Tablet PO (09:25)
[2024-05-29] MEDS: Metoprolol(XL)Succ 100 MG Tablet PO (09:25)
[2024-05-29 11:54] VITALS: BMI 40.5
[2024-05-29 13:20] VITALS: BP 138/62; PULSE 62
[2024-05-29 17:42] VITALS: BP 154/60; PULSE 58; RESP 16; TEMP 36.7; O2SAT 96
[2024-05-29] MEDS: Petrolatum 33% Tube 1 APPLIC TOPICAL (20:46)
[2024-05-29 21:29] VITALS: BP 155/59; PULSE 62
[2024-05-29] MEDS: Metoprolol(XL)Succ 50 MG Tablet PO (21:29)
[2024-05-29] MEDS: traZODone 50 MG Tablet 150 MG PO (21:29)
[2024-05-29] MEDS: Atorvastatin Calcium 40 MG Tablet PO (21:32)
[2024-05-29 23:02] VITALS: BMI 40.5
[2024-05-30] VITALS (8 sets, daily range): BP systolic 142–158; BP diastolic 56–76; PULSE 54–66; RESP 16; TEMP 36.4–37.1; O2SAT 97–98; BMI 40.5
[2024-05-30] MEDS: busPIRone 5 MG Tablet PO ×3 (06:11→21:24)
[2024-05-30] MEDS: Enoxaparin 40 MG/0.4 ML Syringe SC (06:11)
[2024-05-30 06:27] LABS: Anion Gap 4 (5-15); BUN 23 mg/dL (7-18); BUN/Creat Ratio 28.7 RATIO (10-20); Chloride 110 mmol/L (98-107); EST Glomerular Filtration Rate 75 mL/min (>60); Est Glom Filt Rate - Afr Amer 91 mL/min (>60); Estimated Creatinine Clearance 96.72 ml/min; Glucose 93 mg/dL (74-106); Potassium 3.4 mmol/L (3.5-5.1); Sodium Level 143 mmol/L (136-145)
[2024-05-30] MEDS: Lisinopril 10 MG Tablet PO (07:56)
[2024-05-30] MEDS: Clopidogrel Bisulfate 75 MG Tablet PO (07:56)
[2024-05-30] MEDS: Aspirin E.C. 81 MG Tablet PO (07:56)
[2024-05-30] MEDS: Metoprolol(XL)Succ 100 MG Tablet PO (07:56)
[2024-05-30] MEDS: Venlafaxine XR 75 MG Capsule PO (07:56)
[2024-05-30] MEDS: Tolterodine Tartrate 4 MG CAP.SA PO (07:56)
[2024-05-30] MEDS: Meloxicam 7.5 MG Tablet PO (07:57)
[2024-05-30] MEDS: amLODIPine 5 MG Tablet PO (07:57)
[2024-05-30] MEDS: Pantoprazole Sodium 20 MG Tablet PO ×2 (07:57→21:25)
--- NOTE | 2024-05-30 08:50 | PN_ITS ---
Subjective Subjective Sophy was seen on team rounds today. Her family was present in the room for rounds. Afebrile VSS -blood pressure through the weekend has ranged from 115/53 to 163/70. Has not required hydralazine since 05/27/2024. Maintaining appropriate oxygen saturation on RA Oral intake - FOOD good FLUIDS good Discussed with nursing - nursing reports that when her mother is present Sophy gets anxious and the BP goes up. Her mother was here over the weekend and felt funny. she wanted nursing to check her BS. She said that she felt funny earlier in the day and took and extra pill because she thought her BS was high. Mother called 911 last week and went to the ED when caused Sophy's BP to nacho rocket. Reviewed the THERAPY notes Medication list reviewed. All lab drawn this morning was personally reviewed. Sodium is 143 and the potassium is 3.4. The BUN is 23 with a stable creatinine at 0.8. Calcium is normal. Sophy denies cephalgia, lightheadedness, chest pain, shortness of breath, cough, nausea/vomiting/abdominal pain/abdominal cramping, dysuria and calf tenderness. Tells me that she slept well last night. Denies feeling anxious. Tolerating Buspar with no adverse side effects. Objective Data Objective Data Vital Signs: Vital Signs Temp Pulse Resp BP Pulse Ox O2 Del Method FiO2 97.5 F L 57 L 16 142/62 H 98 Room Air 21 05/30/24 06:00 05/30/24 08:09 05/30/24 06:00 05/30/24 08:09 05/30/24 06:00 05/30/24 06:00 05/17/24 22:05 Oxygen Delivery Method Room Air Weight: 282 lb 4 oz Body Mass Index (BMI) 40.5 Intake & Output: Intake and Output for Last 24 Hours 05/28/24 05/29/24 05/30/24 23:59 23:59 23:59 Intake Total 1540 / 1540 2150 / 2150 120 / 120 Output Total 1376 / 1376 1100 / 1100 100 / 100 Balance 164 / 164 1050 / 1050 20 / 20 Lab / Micro Data 05/18/24 05:49 05/30/24 05:12 Labs: Laboratory Results - last 24 hr 05/30/24 05:12: Sodium 143, Potassium 3.4 L, Chloride 110 H, Carbon Dioxide 29.0, Anion Gap 4 L, BUN 23 H, Creatinine 0.80, Estim Creat Clear Calc 96.72, Est GFR (MDRD) Af Amer 91, Est GFR (MDRD) Non-Af 75, BUN/Creatinine Ratio 28.7 H , Glucose 93, Calcium 9.0 Social Homelessness:: Sheltered (Not homeless. ) Physical Exam Const alert and oriented x3 General Appearance: cooperative HEENT Mouth: dry mucous membranes Resp clear to auscultation bilaterally Resp Narrative: I suspect the BS's are somewhat diminished due to body habitus Effort and Inspection: Negative for tachypneic Auscultation: diminished lung sounds Cardio regular rate, regular rhythm and no gallops Cardio Narrative: No ectopy HR ranges from 54-63. Denies lightheadedness. GI normal to inspection, nondistended, normoactive bowel sounds, soft to palpation and non-tender GI Narrative: Obese, no guarding with palpation. Extremity no calf tenderness Skin General Skin Exam: no breakdown Rashes: no rashes Neuro CN's II-XII intact bilaterally Neuro Narrative: Psych Psych Narrative: Not nearly as defensive as she was at admission to rehab. Seems less anxious since the Buspar was started. Eating well and sleeping well now. Anxious about the cost of the medicines she is on now. Assessment & Plan Assessment/Plan (1) Debility: (2) Acute left-sided muscle weakness: (3) Ischemic cerebrovascular accident (CVA): (4) HLD (hyperlipidemia): QUALIFIERS: Hyperlipidemia type: pure hypercholesterolemia Q ualified Code(s): E78.00 - Pure hypercholesterolemia, unspecified (5) Thyroid nodule greater than or equal to 1.5 cm in diameter incidentally noted on imaging study: (6) Right carotid bruit: (7) HANNA (obstructive sleep apnea): (8) Uncontrolled hypertension: (9) Hypokalemia: PLAN: Plan 1. Continue therapy 2. Increase lisinopril to 15 mg p.o. twice daily 3. Continue BuSpar 5 mg 3 times daily and Effexor XR 75 mg daily. 4. Recommended that she seek counseling post discharge to learn how to better manage her anxiety. millinery worker will give a list of local psychotherapist taking new clients. 5. Will need to attend the drivers rehabilitation program at [facility] in [place] prior to driving. millinery worker will make a referral and give the patient the information 6. Sleep lab can do a sleep study on the night of 06/08/24. I suspect she has sleep apnea. STOP BANG score is 7/8. Untreated sleep apnea can be associated with HTN, cognitive dysfunction, PAF, RLS, depression, etc. 7. 30 day event monitor at DC 8. DC Clopidogrel on 06/06/24 and continue ASA 81 daily 9. 40 mEq of potassium chloride now and then start 10 mEq daily. 10. Recheck a BMP on . 11. Defer evaluation for thyroid nodule to PCP post DC Charges/Coding Visit Charges Inpatient E&M: 53576 Subs Hosp L2
[2024-05-30] MEDS: Potassium Chloride Oral Tablet 20 MEQ 40 MEQ PO (10:10)
[2024-05-30] MEDS: Lisinopril 5 MG Tablet 15 MG PO ×2 (10:10→21:25)
--- NOTE | 2024-05-30 12:43 | CASEMGMT ---
Addendum entered by Debbi Pope 05/30/24 16:28: After meeting, SW returned to pt's room to follow up on all information discussed. Pt's and son still present. SW inquired how each libertarian was feeling. All concluded it was a lot of information and a lot to digest. SW discussed further about the importance of addressing and coping well with pt's anxiety and how that directly impacts her physical and medical well-being. Explained the process and benefits of counseling, in addition to medication treatment and treating HANNA. Pt expressed concerns with being able to sleep and feel okay with having to wear a mask that covers her face and mouth. SW inquired the last time she wore that mask. Pt stated I never did; I just feel like I won't be okay with that happening. SW informed that is her anxiety speaking, and if she had not physically experienced those feelings before, already having a negative mindset and assuming she will not like the mask. SW educated to having several different mask options. SW spoke at length with pt on appropriately managing anxiety and health issues. Encouraged to be forward thinking, naming triggers for anxiety, and pursuing counseling to assist with managing those triggers and establishing positive coping skills. SW explained pt is the one to make the decision on her future; not her family, the Dr or this worker. Explained she has a great support system, but it is not only going to create resentment from the pt to her family if they keep nagging her to get better. Challenged pt to think of how much long she wants to live and if she is motivated to make the changes to live that length of time, healthier. Pt expressed she does want to live a healthier life and is committed to making the necessary changes to do so. SW praised pt for her commitment and offered ongoing assistance with making a counseling appt or answer any other questions. Pt and family appreciative. Original Note: Social Work IDT met with patient, , dtr and son for Team meeting. Discussed patient's progress in PT/OT/ST/SN. Educated to [facility] insurance with NRD 06/03 and continued stay is not guaranteed with each review. Pt is requesting to DC home. IDT agreeable as pt is improving. Offered DC 06/03 - all in agreement. is recommending counseling at [facility]. SW provided resources for both. SW offered to schedule counseling appt at [facility], if pt chooses a provider. SW to send referral for [facility]. Pt also expressed to the ST concern about the cost of meds at [facility]. SW phoned pharmacy to inquire about cost, but until the meds are ordered, they cannot be billed to the insurance to get a cason. SW to follow up with pharmacy once DC meds are ordered and assist with any interventions for payment of meds with pt. Family and pt have discussed [facility] in the near future. SW educated to PCP assistance with coordination as IDT is recommending OP therapy at [facility]. Pt and family agreeable and can transport to appts. SW verbally provided OP providers. Pt agreeable to [facility] for PT/OT/ST. No DME needs, though dtr is going to bring in home FWW to ensure if its pt, as it was another family member's. SW offered to coordinate a new FWW at [facility]. completed extensive education to medical risk factors and importance of treating anxiety/depression. HELENE offered ongoing assistance. HELENE faxed referral to [facility]. Plan: DC home with 06/03, [facility] PT/OT/ST Debbi Pope, FLIGHT ENGINEER [employer]
[2024-05-30] MEDS: traZODone 50 MG Tablet 150 MG PO (21:24)
[2024-05-30] MEDS: Atorvastatin Calcium 40 MG Tablet PO (21:25)
[2024-05-30] MEDS: Metoprolol(XL)Succ 50 MG Tablet PO (21:25)
[2024-05-30] MEDS: Petrolatum 33% Tube 1 APPLIC TOPICAL (21:28)
[2024-05-31] VITALS (7 sets, daily range): BP systolic 142–167; BP diastolic 47–74; PULSE 57–65; RESP 16–17; TEMP 36.2–36.9; O2SAT 95–96; BMI 40.5
[2024-05-31] MEDS: Enoxaparin 40 MG/0.4 ML Syringe SC (06:47)
[2024-05-31] MEDS: busPIRone 5 MG Tablet PO ×3 (06:48→21:33)
[2024-05-31] MEDS: amLODIPine 5 MG Tablet PO (07:44)
[2024-05-31] MEDS: Venlafaxine XR 75 MG Capsule PO (07:45)
[2024-05-31] MEDS: Meloxicam 7.5 MG Tablet PO (07:45)
[2024-05-31] MEDS: Lisinopril 5 MG Tablet 15 MG PO ×2 (07:45→21:33)
[2024-05-31] MEDS: Clopidogrel Bisulfate 75 MG Tablet PO (07:45)
[2024-05-31] MEDS: Potassium Chloride Oral Tablet 10 MEQ PO (07:45)
[2024-05-31] MEDS: Aspirin E.C. 81 MG Tablet PO (07:46)
[2024-05-31] MEDS: Metoprolol(XL)Succ 100 MG Tablet PO (07:46)
[2024-05-31] MEDS: Pantoprazole Sodium 20 MG Tablet PO ×2 (07:46→21:33)
[2024-05-31] MEDS: Tolterodine Tartrate 4 MG CAP.SA PO (07:46)
[2024-05-31 08:25] LABS: Anion Gap 5 (5-15); BUN 20 mg/dL (7-18); BUN/Creat Ratio 24.2 RATIO (10-20); Calcium,Total 8.8 mg/dL (8.5-10.1); Chloride 109 mmol/L (98-107); Creatinine, Serum 0.83 mg/dL (0.55-1.02); EST Glomerular Filtration Rate 73 mL/min (>60); Est Glom Filt Rate - Afr Amer 88 mL/min (>60); Estimated Creatinine Clearance 93.22 ml/min; Glucose 136 mg/dL (74-106); Potassium 3.5 mmol/L (3.5-5.1); Sodium Level 141 mmol/L (136-145)
--- NOTE | 2024-05-31 08:38 | PN.REHAB_ITS ---
Subjective Subjective Patient seen, examined. She has no new problems, concerns, issues, complaints. Her left sided weakness is improving, her left lower extremity is more difficult. Objective Data Objective Data Vital Signs: Vital Signs Temp Pulse Resp BP Pulse Ox O2 Del Method FiO2 97.2 F L 62 16 142/47 H 96 Room Air 21 05/31/24 06:00 05/31/24 07:46 05/31/24 06:00 05/31/24 07:46 05/31/24 06:00 05/31/24 06:00 05/17/24 22:05 Oxygen Delivery Method Room Air Weight: 128.026 kg Body Mass Index (BMI) 40.5 Intake & Output: Intake and Output for Last 24 Hours 05/29/24 05/30/24 05/31/24 23:59 23:59 23:59 Intake Total 2150 / 2150 2500 / 2500 Output Total 1100 / 1100 1200 / 1300 250 / 250 Balance 1050 / 1050 1300 / 1200 -250 / -250 Lab / Micro Data 05/18/24 05:49 05/31/24 07:48 Labs: Laboratory Results - last 24 hr 05/31/24 07:48: Sodium 141, Potassium 3.5, Chloride 109 H, Carbon Dioxide 27.0, Anion Gap 5, BUN 20 H, Creatinine 0.83, Estim Creat Clear Calc 93.22, Est GFR (MDRD) Af Amer 88, Est GFR (MDRD) Non-Af 73, BUN/Creatinine Ratio 24.2 H, G lucose 136 H, Calcium 8.8 Social Homelessness:: Sheltered (Not homeless. ) Indicators for Scoring Admitted with or Primary Diagnosis of CVA/Stroke: Yes Hx of CVA/Stroke: Yes Modified [place] Score MRS Score at time of Evaluation: 4-Moderate/severe disability Physical Exam Const alert General Appearance: cooperative HEENT normocephalic Eyes PERRL and EOMs intact bilaterally Neck supple, no JVD and no carotid bruits Resp normal respiratory effort, normal air movement and clear to auscultation bilaterally Cardio regular rate and regular rhythm GI normal to inspection, nondistended, normoactive bowel sounds, non-tender and non-distended Extremity normal capillary refill General Extremity: Negative for edema Skin no rashes or lesions noted General Skin Exam: no breakdown Neuro Neuro Narrative: Left hemiparesis, left lower extremity worse than left upper extremity. Psych affect normal Appearance: appropriate Assessment & Plan Assessment/Plan (1) Debility: (2) Ischemic cerebrovascular accident (CVA): (3) Essential (primary) hypertension: (4) HLD (hyperlipidemia): QUALIFIERS: Hyperlipidemia type: pure hypercholesterolemia Q ualified Code(s): E78.00 - Pure hypercholesterolemia, unspecified (5) Anxiety: (6) Osteoarthritis: (7) Hypokalemia: (8) Overactive bladder: (9) Insomnia: QUALIFIERS: Insomnia type: unspecified Qualified Code(s): G47.00 - Insomnia, unspecified (10) Depression: PLAN: Plan 69 year old female with below past medical history hospitalized for right sided stroke with left alba, admitted to with debility, here for 3 hours daily rehabilitation, strengthening, prior to discharge home. * Debility - PT/OT/ST. * Pain - Tylenol 1000mg q6 prn. * Bowel - MOM 30ml po x 1 prn, Dulcolax 10mg pr x 1 prn. * DVT prophylaxis - Lovenox 40mg sc daily. * Hypertension - Metoprolol succinate 100mg am, 50mg qhs, Lisinopril 15mg bid, Amlodipine 5mg daily, Hydralazine 50mg q4 prn. * Stroke - Aspirin 81mg daily, Plavix 75mg daily thru 06/06/2024. * Hyperlipidemia - Atorvastatin 40mg qhs. * Anxiety - Buspar 5mg tid. * Osteoarthritis - Meloxicam 7.5mg daily. * GERD - Pantoprazole 20mg bid. * Skin irritation - Eucerin topical qhs. * Hypokalemia - KCL 10meq daily. * OAB - Tolterodine 4mg daily. * Insomnia - Trazodone 150mg qhs. * Depression - Venlafaxine 75mg daily.
--- NOTE | 2024-05-31 19:07 | DS.PCM_ITS ---
Providers Date of Admission: 05/17/24 Primary Care Physician: Dr. Colby Avendaño MD Reason For Visit: CVA Diagnosis Discharge Diagnosis (1) Debility: Status: Acute Code(s): R53.81 - Other malaise (2) Ischemic cerebrovascular accident (CVA): Status: Acute Code(s): I63.9 - Cerebral infarction, unspecified (3) Essential (primary) hypertension: Status: Acute Code(s): I10 - Essential (primary) hypertension (4) HLD (hyperlipidemia): Status: Acute Code(s): E78.5 - Hyperlipidemia, unspecified Qualifiers: Hyperlipidemia type: pure hypercholesterolemia Qualified Code(s): E 78.00 - Pure hypercholesterolemia, unspecified (5) Anxiety: Status: Acute Code(s): F41.9 - Anxiety disorder, unspecified (6) Osteoarthritis: Status: Acute Code(s): M19.90 - Unspecified osteoarthritis, unspecified site (7) Hypokalemia: Status: Acute Code(s): E87.6 - Hypokalemia (8) Overactive bladder: Status: Acute Code(s): N32.81 - Overactive bladder (9) Insomnia: Status: Acute Code(s): G47.00 - Insomnia, unspecified Qualifiers: Insomnia type: unspecified Qualified Code(s): G47.00 - Insomnia, unspecified (10) Depression: Status: Acute Code(s): F32.A - Depression, unspecified Plan 69 year old female with below past medical history hospitalized for right sided stroke with left alba, admitted to with debility, here for 3 hours daily rehabilitation, strengthening, prior to discharge home. * Debility - PT/OT/ST. * Pain - Tylenol 1000mg q6 prn. * Bowel - MOM 30ml po x 1 prn, Dulcolax 10mg pr x 1 prn. * DVT prophylaxis - Lovenox 40mg sc daily. * Hypertension - Metoprolol succinate 100mg am, 50mg qhs, Lisinopril 15mg bid, Amlodipine 5mg daily, Hydralazine 50mg q4 prn. * Stroke - Aspirin 81mg daily, Plavix 75mg daily thru 06/06/2024. * Hyperlipidemia - Atorvastatin 40mg qhs. * Anxiety - Buspar 5mg tid. * Osteoarthritis - Meloxicam 7.5mg daily. * GERD - Pantoprazole 20mg bid. * Skin irritation - Eucerin topical qhs. * Hypokalemia - KCL 10meq daily. * OAB - Tolterodine 4mg daily. * Insomnia - Trazodone 150mg qhs. * Depression - Venlafaxine 75mg daily. Medications at Discharge Home Medications aspirin 81 mg tablet,delayed release (Adult Aspirin Regimen) 81 mg PO DAILY [facility] 07/28/22 acetaminophen 500 mg tablet 1,000 mg (2 x 500 mg) PO Q6H PRN PRN Pain Score 1-10 #0 tabs 05/31/24 amlodipine 5 mg tablet 5 mg PO DAILY 30 days #30 tabs 05/31/24 atorvastatin 40 mg tablet 40 mg PO QHS 30 days #30 tabs 05/31/24 clopidogrel 75 mg tablet 75 mg PO DAILY 3 days #3 tabs 05/31/24 hydralazine 50 mg tablet 50 mg PO Q4H PRN PRN Sys>170 SALCIDO> 85 30 days #180 tabs 05/31/24 lisinopril 5 mg tablet 15 mg (3 x 5 mg) PO BID 30 days #180 tabs 05/31/24 meloxicam 7.5 mg tablet 7.5 mg PO DAILY 30 days #30 tabs 05/31/24 metoprolol succinate 100 mg tablet,extended release 24 hr 100 mg PO DAILY 30 days #30 tabs 05/31/24 metoprolol succinate 50 mg tablet,extended release 24 hr 50 mg PO QHS 30 days #30 tabs 05/31/24 pantoprazole 20 mg tablet,delayed release 20 mg PO BID 30 days #60 tabs 05/31/24 potassium chloride 10 mEq tablet,extended release(part/cryst) 10 meq PO DAILYCM 30 days #30 tabs 05/31/24 tolterodine 4 mg capsule,extended release 24 hr 4 mg PO DAILY 30 days #30 caps 05/31/24 trazodone 50 mg tablet 150 mg (3 x 50 mg) PO QHS 30 days #90 tabs 05/31/24 venlafaxine 75 mg capsule,extended release 24 hr 75 mg PO DAILY 30 days #30 caps 05/31/24 Hospital Course Operations None Procedures None Summary of Care Provided Minutes Spent on Discharge: 35 Hospital Course: 69 year old female with below past medical history hospitalized for right sided stroke with left alba, admitted to with debility, here for 3 hours daily rehabilitation, strengthening, prior to discharge home. Discharge home with 06/03/2024, [facility] PT/OT/ST. Physical Exam Const alert General Appearance: cooperative HEENT normocephalic Eyes PERRL and EOMs intact bilaterally Neck supple, no JVD and no carotid bruits Resp normal respiratory effort, normal air movement and clear to auscultation bilaterally Cardio regular rate and regular rhythm GI normal to inspection, nondistended, normoactive bowel sounds, non-tender and non-distended Extremity normal capillary refill General Extremity: Negative for edema Skin no rashes or lesions noted General Skin Exam: no breakdown Neuro Neuro Narrative: Left hemiparesis. Psych affect normal Appearance: appropriate Medical Records Data Homelessness:: Sheltered (Not homeless. ) Weight / BMI Weight Weight: 128.026 kg Body Mass Index (BMI) 40.5 ABG / Lab / Microbiology Data 05/18/24 05:49 05/31/24 07:48 Laboratory: Laboratory Results - last 24 hr 05/31/24 07:48: Sodium 141, Potassium 3.5, Chloride 109 H, Carbon Dioxide 27.0, Anion Gap 5, BUN 20 H, Creatinine 0.83, Estim Creat Clear Calc 93.22, Est GFR (MDRD) Af Amer 88, Est GFR (MDRD) Non-Af 73, BUN/Creatinine Ratio 24.2 H, G lucose 136 H, Calcium 8.8 Indicators for Scoring Admitted with or Primary Diagnosis of CVA/Stroke: Yes Hx of CVA/Stroke: Yes Modified Roberts Score MRS Score at time of Evaluation: 4-Moderate/severe disability D/C Instructions Discharge Diet: No restrictions Discharge Activity: Return to Normal Activity, May Shower and Use Walker Weight Bearing Status: Weight bearing as tolerated Call your doctor if you observe: Fever of 101 or Higher, Inability to urinate, Inability to have a bowel movement, Shortness of breath, Dizziness, Fainting spells, Swelling in the ankles, Chest pain and Uncontrolled pain Additional Instructions: Discharge home with 06/03/2024, [facility] PT/OT/ST. Meaningful Use Info Meaningful Use Meaningful Use Diagnoses (Choose all that apply): Ischemic CVA CVA Therapy Assessed for PT,OT and/or ST?: Yes Ischemic Stroke Antithrombotic order at d/c?: Yes Dx of Atrial fib/flutter?: No Statin Dosing Therapy Reference: STATIN DOSE THERAPY REFERENCE: * Patients > 75 years receive moderate or high dose statin therapy. * Patients 75 years or YOUNGER should receive HIGH intensity statin dose unless contraindicated. You will be required to document reason for non-treatment if statin daily dose does not meet guidelines. HIGH DOSE STATIN THERAPY DAILY Atorvastatin > than or = to 40 mg Rosuvastatin > than or = to 20 mg Amlodipine + Atorvastatin > than or = to 2.5/40 mg Ezetimibe + Simvastatin 10/80 mg Simvastatin 80mg Statins at discharge?: Yes If patient is 75 or younger, pt will be discharged on HIGH intensity statin.: Y es Primary Dx Acute Ischemic CVA?: Yes IV thrombolytic ordered during stay?: No Reason IV thrombolytic not ordered: Treatment not Indicated Discharge Plan Admission Admit Date/Time: 05/17/24 11:30 Primary Reason for Your Visit: Debility. Attending Provider: Ruth Nunn Primary Care Provider: Colby Avendaño Instructions Additional Instructions / Restrictions: Discharge home with 06/03/2024, [facility] PT/OT/ST. Discharge Orders/Prescriptions Prescriptions: New acetaminophen 500 mg Tablet 1,000 mg PO Q6H PRN PRN (Reason: Pain Score 1-10) Qty: 0 0RF atorvastatin 40 mg Tablet 40 mg PO QHS 30 Days Qty: 30 0RF venlafaxine 75 mg Capsule,Extended Release 24hr 75 mg PO DAILY 30 Days Qty: 30 0RF trazodone 50 mg Tablet 150 mg PO QHS 30 Days Qty: 90 0RF metoprolol succinate 50 mg Tablet Extended Release 24 Hr 50 mg PO QHS 30 Days Qty: 30 0RF tolterodine 4 mg Capsule,Extended Release 24hr 4 mg PO DAILY 30 Days Qty: 30 0RF metoprolol succinate 100 mg Tablet Extended Release 24 Hr 100 mg PO DAILY 30 Days Qty: 30 0RF clopidogrel 75 mg Tablet 75 mg PO DAILY 3 Days Qty: 3 0RF amlodipine 5 mg Tablet 5 mg PO DAILY 30 Days Qty: 30 0RF pantoprazole 20 mg Tablet,Delayed Release (Dr/Ec) 20 mg PO BID 30 Days Qty: 60 0RF meloxicam 7.5 mg Tablet 7.5 mg PO DAILY 30 Days Qty: 30 0RF hydralazine 50 mg Tablet 50 mg PO Q4H PRN PRN (Reason: Sys>170 SALCIDO> 85) 30 Days Qty: 180 0RF lisinopril 5 mg Tablet 15 mg PO BID 30 Days Qty: 180 0RF potassium chloride 10 mEq Tablet,Er Particles/Crystals 10 meq PO DAILYCM 30 Days Qty: 30 0RF Continued aspirin [Adult Aspirin Regimen] 81 mg tablet,delayed release (DR/EC) 81 mg PO DAILY Discontinued solifenacin 10 mg tablet 10 mg PO DAILY trazodone 100 mg tablet 100 mg PO QHS meloxicam 15 mg tablet 7.5 mg PO DAILY metoprolol tartrate 50 mg tablet 50 mg PO BID atorvastatin 40 mg tablet 40 mg PO DAILY clopidogrel 75 mg tablet 75 mg PO DAILY enoxaparin [Lovenox] 40 mg/0.4 mL syringe 40 mg subcut DAILY Referrals / Follow Up: Sleep, lab [Other] - 06/03/24 7:00 pm Ben Vidal MD [Med Staff - Active Staff] - (Vertebral artery stenosis) Peter Vergara MD [Non-Staff] - 06/29/24 9:00 am Colby Avendaño MD [Primary Care Provider] - Disposition Disposition (needs filled in before D/C Order can be placed): Home, Self Care
[2024-05-31] MEDS: Metoprolol(XL)Succ 50 MG Tablet PO (21:32)
[2024-05-31] MEDS: Atorvastatin Calcium 40 MG Tablet PO (21:33)
[2024-05-31] MEDS: traZODone 50 MG Tablet 150 MG PO (21:33)
[2024-05-31] MEDS: Petrolatum 33% Tube 1 APPLIC TOPICAL (21:34)
[2024-06-01] VITALS (7 sets, daily range): BP systolic 107–156; BP diastolic 65–79; PULSE 54–65; RESP 16; TEMP 36.3–36.6; O2SAT 94–98; BMI 40.5
--- NOTE | 2024-06-01 03:40 | NURSING ---
Reviewed and agree with Ankit PLATT, assessment and documentation charting.
[2024-06-01] MEDS: Enoxaparin 40 MG/0.4 ML Syringe SC (05:24)
[2024-06-01] MEDS: busPIRone 5 MG Tablet PO ×3 (05:24→21:16)
[2024-06-01] MEDS: Metoprolol(XL)Succ 100 MG Tablet PO (07:27)
[2024-06-01] MEDS: Pantoprazole Sodium 20 MG Tablet PO ×2 (07:27→21:15)
[2024-06-01] MEDS: Meloxicam 7.5 MG Tablet PO (07:27)
[2024-06-01] MEDS: Lisinopril 5 MG Tablet 15 MG PO ×2 (07:28→21:16)
[2024-06-01] MEDS: Venlafaxine XR 75 MG Capsule PO (07:28)
[2024-06-01] MEDS: Clopidogrel Bisulfate 75 MG Tablet PO (07:28)
[2024-06-01] MEDS: amLODIPine 5 MG Tablet PO (07:28)
[2024-06-01] MEDS: Tolterodine Tartrate 4 MG CAP.SA PO (07:28)
[2024-06-01] MEDS: Potassium Chloride Oral Tablet 10 MEQ PO (07:28)
[2024-06-01] MEDS: Aspirin E.C. 81 MG Tablet PO (07:28)
--- NOTE | 2024-06-01 14:19 | CASEMGMT ---
Addendum entered by Debbi Pope 06/02/24 07:42: Social Work Laurie assessed and pt is slightly over income for community Medicaid. SW updated dtr. Original Note: Social Work SW met with patient at bedside to explain copay findings for all recommended entities. SW contacted [employer] insurance and pharmacy to collect copay information. SW printed updated list of counseling providers from the insurance website and highlighted the female providers, per pt's request. SW provided findings of copays for counseling, outpatient therapy. skilled HHC and medications. SW also discussed application for Medicaid to possible assist with insurance premiums or healthcare costs/copays. Pt denied having costs of services being a hindrance in pursuing healthcare, however, stated it is the unknown of the cost. Pt was hesitant to [facility], but ultimately agreed to just see if pt is eligible. Pt provided this worker with income and asset information, and pt has her and her 's fixed incomes, and virtually no savings funds. When this worker provided the copay cost for outpatient therapy, pt asked why she is getting speech therapy. SW asked pt what she thinks ST is. Pt replied it had to do with speech/talking, and pt does not have any problems with her physical speech. SW confirmed pt does not have issues with speech. Educated the ST focuses on speech, swallowing and cognition or brain therapy, as another way to classify it. Pt stated she has no issues with swallowing. SW confirmed and explained pt has cognitive impairment, pointing out the fact that pt asked the question, confirms the need for continued ST. Pt has little to no carryover from conversation to conversation and very poor immediate recall, per BIMS score. When this worker provided the copay cost and new list of counseling agencies, pt shoke her head no, and she is not pursing that service, especially d/t cost. SW reiterated the help Medicaid could offer with healthcare costs, if eligible. SW offered ongoing assistance if further questions arise. Pt appreciative. HELENE sent referral via email to [facility]. SW phoned dtr to update on conversation and copay amounts. Dtr expressed awareness to pt's deficits, though feeling defeated with pt needing more assistance and oversight than initially aniticipated. SW provided verbal support and empathy to dtr. Cautioned dtr of caregiver burnout. Dtr joking said she may need counseling, along with her mom. SW provided affirmation that is a great option. Validated that this situation is overwhelming and these changes do affect the dtr. Offered to provide dtr with list of counseling agencies, but dtr denied and stated if she decides to pursue it, she will get the list from the pt. SW offered ongoing assistance. Debbi Pope, ELASTIC ASSEMBLER MAIL DELIVERER
[2024-06-01] MEDS: Metoprolol(XL)Succ 50 MG Tablet PO (21:15)
[2024-06-01] MEDS: Atorvastatin Calcium 40 MG Tablet PO (21:16)
[2024-06-01] MEDS: traZODone 50 MG Tablet 150 MG PO (21:16)
[2024-06-01] MEDS: Petrolatum 33% Tube 1 APPLIC TOPICAL (21:17)
[2024-06-02 06:00] VITALS: BP 176/79; PULSE 63; RESP 15; TEMP 36.8; O2SAT 98
[2024-06-02] MEDS: busPIRone 5 MG Tablet PO ×3 (06:31→22:03)
[2024-06-02 06:32] VITALS: BP 176/79; PULSE 63
[2024-06-02] MEDS: hydrALAZINE 50 MG Tablet PO (06:32)
[2024-06-02] MEDS: Enoxaparin 40 MG/0.4 ML Syringe SC (06:32)
[2024-06-02 07:52] VITALS: BP 176/79; PULSE 63
[2024-06-02] MEDS: Potassium Chloride Oral Tablet 10 MEQ PO (07:52)
[2024-06-02] MEDS: Pantoprazole Sodium 20 MG Tablet PO ×2 (07:52→22:03)
[2024-06-02] MEDS: Metoprolol(XL)Succ 100 MG Tablet PO (07:52)
[2024-06-02] MEDS: Meloxicam 7.5 MG Tablet PO (07:52)
[2024-06-02] MEDS: Tolterodine Tartrate 4 MG CAP.SA PO (07:52)
[2024-06-02] MEDS: Aspirin E.C. 81 MG Tablet PO (07:52)
[2024-06-02] MEDS: Venlafaxine XR 75 MG Capsule PO (07:52)
[2024-06-02] MEDS: Lisinopril 5 MG Tablet 15 MG PO ×2 (07:52→22:03)
[2024-06-02] MEDS: amLODIPine 5 MG Tablet PO (07:52)
[2024-06-02] MEDS: Clopidogrel Bisulfate 75 MG Tablet PO (07:53)
--- NOTE | 2024-06-02 11:22 | CASEMGMT ---
Social Work Patient will need overnight O2 at [place]. [place] [facility] [place] [facility]
[2024-06-02 11:55] VITALS: BMI 40.5
--- NOTE | 2024-06-02 15:52 | CHAPLAIN ---
Type of Pastoral Visit ___ Initial Visit _x__ Follow-up Visit ___ On-call Visit ___ General Patient Visit ___ Spiritual Assessment ___ Family Conference ___ Bereavement ___ Rapid Response ___ Code Blue ___ Other (describe below) Pastoral Care Referral From _x__ Patient ___ Family ___ Nurse ___ Physician ___ Supervisor [employer]ing ___ Hydrology Teacher ___ Other (describe below) Sacrament/Intervention _x__ Active listening ___ Anointing ___ Congregational ___ Bereavement ___ Communion ___ Chiquita exploration ___ ___ Life review _x__ Prayer ___ Reconciliation ___ Sacrament of Sick ___ Supportive presence ___ Wedding ___ Other (describe below) Pastoral Comments patient states with excitement that she is being discharged tomorrow and has plans to go to her granddaughter's senior volleyball night; pt also is looking forward to her oldest grandson's wedding later this month; pt can find hope in these future family celebrations; pt states that her has gotten better from his own illness and they can be hopeful now; pt welcomes presence and prayer for her support today;
[2024-06-02 17:24] VITALS: BP 161/73; PULSE 62; RESP 17; TEMP 37.1; O2SAT 94
[2024-06-02 21:55] VITALS: BP 109/58; PULSE 64; RESP 17; O2SAT 94; BMI 40.5
[2024-06-02 22:02] VITALS: BP 109/58; PULSE 64
[2024-06-02] MEDS: Metoprolol(XL)Succ 50 MG Tablet PO (22:02)
[2024-06-02] MEDS: traZODone 50 MG Tablet 150 MG PO (22:03)
[2024-06-02] MEDS: Petrolatum 33% Tube 1 APPLIC TOPICAL (22:04)
[2024-06-02] MEDS: Atorvastatin Calcium 40 MG Tablet PO (22:04)
[2024-06-03 06:00] VITALS: BP 148/65; PULSE 59; RESP 17; TEMP 36.3; O2SAT 96; BMI 39.8
[2024-06-03] MEDS: busPIRone 5 MG Tablet PO (06:44)
[2024-06-03] MEDS: Enoxaparin 40 MG/0.4 ML Syringe SC (06:44)
[2024-06-03 07:58] VITALS: BP 155/73; PULSE 61
[2024-06-03] MEDS: Metoprolol(XL)Succ 100 MG Tablet PO (07:58)
[2024-06-03] MEDS: Tolterodine Tartrate 4 MG CAP.SA PO (07:59)
[2024-06-03] MEDS: Venlafaxine XR 75 MG Capsule PO (07:59)
[2024-06-03] MEDS: Potassium Chloride Oral Tablet 10 MEQ PO (07:59)
[2024-06-03] MEDS: amLODIPine 5 MG Tablet PO (07:59)
[2024-06-03] MEDS: Lisinopril 5 MG Tablet 15 MG PO (07:59)
[2024-06-03] MEDS: Pantoprazole Sodium 20 MG Tablet PO (07:59)
[2024-06-03] MEDS: Clopidogrel Bisulfate 75 MG Tablet PO (07:59)
[2024-06-03] MEDS: Aspirin E.C. 81 MG Tablet PO (08:00)
[2024-06-03] MEDS: Meloxicam 7.5 MG Tablet PO (08:00)
== END 2024-06-03 10:30 | disposition home or self-care (01) | DRG 57 ==
PROVIDERS: Family Medicine Geriatric Medicine; Admitting Provider Internal Medicine; PCP Internal Medicine; Visit Provider Internal Medicine
DX: I69.354 Hemiplegia and hemiparesis following cerebral infarction affecting left non-dominant side (principal); Z68.41 Body mass index [BMI] 40.0-44.9, adult; Z68.1 Body mass index [BMI] 19.9 or less, adult; I27.20 Pulmonary hypertension, unspecified; F32.A Depression, unspecified; E04.1 Nontoxic single thyroid nodule; I70.0 Atherosclerosis of aorta; I10 Essential (primary) hypertension; I69.328 Other speech and language deficits following cerebral infarction; E66.01 Morbid (severe) obesity due to excess calories; G47.33 Obstructive sleep apnea (adult) (pediatric); K21.9 Gastro-esophageal reflux disease without esophagitis; M47.819 Spondylosis without myelopathy or radiculopathy, site unspecified; M41.9 Scoliosis, unspecified; F41.9 Anxiety disorder, unspecified; E87.6 Hypokalemia; E78.00 Pure hypercholesterolemia, unspecified; L29.9 Pruritus, unspecified; I69.398 Other sequelae of cerebral infarction; I69.311 Memory deficit following cerebral infarction; I87.2 Venous insufficiency (chronic) (peripheral); M19.90 Unspecified osteoarthritis, unspecified site; G47.00 Insomnia, unspecified; N32.81 Overactive bladder; Z87.891 Personal history of nicotine dependence; Z79.82 Long term (current) use of aspirin; G89.29 Other chronic pain; Z79.899 Other long term (current) drug therapy; R20.2 Paresthesia of skin; R35.1 Nocturia; Z79.01 Long term (current) use of anticoagulants
CPT/HCPCS: 36415; 72110; 73521; 80048; 80053; 81001; 82533; 83036; 83735; 84100; 85025; 92507; 92523; 94762; 97110; 97112; 97116; 97129; 97130; 97162; 97166; 97530; 97535; 97802; 97803

== ENCOUNTER → 2024-06-08 | Outpatient (CLI) | payer MEDICARE, SELFPAY | END | disposition home or self-care (01) | PROVIDERS: PCP Internal Medicine; Referring Provider Internal Medicine; Visit Provider Internal Medicine | DX: G47.10 Hypersomnia, unspecified (principal) | CPT/HCPCS: 95810 ==

== ENCOUNTER 2024-08-16 10:00 | Outpatient (RCR) | payer MEDICARE, SELFPAY ==
--- NOTE | 2024-06-06 13:54 | HP.PTEVAL ---
Patient's Visit Information Visit Information Visit Information: LEROY CHRISTIAN is a 69 year old F referred to Physical Therapy by Dr. Ruth Nunn DO with a diagnosis of stroke. Date of Evaluation: 06/06/24 Physical Therapist: Ben Mccormack, KLEBERT, OCS, CSCS Visit Plan Frequency: 2-3x /Week Duration: 4-6 Weeks Plan: 2-3x/week for 4 weeks 1. L LE coordination exercises and balance/SLS proprioceptive activity to HEp 2. L LE and general strength working to I home or gym program based on pt desire 3. Gait and stair training and step over tub training emphasizing L LE safety progress HEP(currently doing knee ext and flexion with band, standing hip flexion, abd, ext exercises and heel raises 3x10 daily and will start to walk with walker and as able. Subjective Subjective: Had a stroke 3 weeks ago. Mertens like a pinch in back for a couple days and was holding onto wall walking through house and a little difficulty getting out of bed(normal with her back pain). Took to hospital for pneumonia and dtr saw her movement and had her checked out. Admitted through ER charing room with husbands. Catscan showed stroke. Wasnt moving right was main symptom and 3 tingly fingers and toes all on l side. Can't move them up and down. Told she has speech impediment but patient does not see it. She also does not notice cognitive deficits, maybe a little memory lapse in months prior. tingling in L hand is gone. L arm feels normal. Maybe a little weak in L hand. Using a walker to get around or cane, did not need prior to stroke. Uses them for safety and wh walker for longer distances. Got out of hosital on /Thursday out of rehab. Improving overall. Pain in L foot at times but minimal and L leg feels weaker. Sleep: is not a problem. 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 Regular exercises: no Basic ADLs dressing, showe, bathroom herself, has tub and chair in shower. helps into tub. No falls except at hospital first week. Floor was wet. 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 Standing at counter and moving legs is ex form hospital and did 20x. Objective Objective: Wallks slowly with wh walker mod I back to PT, transfers with UE I chair and bed. Steps are reciprocal with two rails and weaker on L. Can walk with cane in R with SBA and without AD CGA today. strength:L 34# DF and 54 # R L 19# and 43# R on hip flexion. Knee flex and ext L slightly weaker than R AROM hips and ankles and knee WFL. Tightness evident B HS at -30 90/90 test. reflexes 1/3 patella and achilles Sensation LE WNL to gross light touch B. Coordination to recirpocal toe and heel tap, inv/ev ROM, and heel to em test all at deficit in L LE vs R. Has some LBP lying odwn flat on back. Pt lacks confident in L LE for good reason and ambulates very slowly, fatigued after 400 foot walk and one flight of steps today with mild SOB gone in 2 minutes. Balance/Special Test Scores Functional Gait Assessment Score: 20 % Disability: 33.3400 Lower Extremity Functional Score: 21 Goals Goal 1:: walk in community without AD I Goal Time Frame: 4-6 Weeks Goal 2:: steps with one rail reciprocally and confidently Goal Time Frame: 4-6 Weeks Goal 3:: Step into bathtub I for shower Goal Time Frame: 4-6 Weeks Goal 4:: Pt feel 99% back to normal activities Goal Time Frame: 4-6 Weeks Goal 5:: I appropriate HEP for LE and general strength and L LE coordination/balance. Goal Time Frame: 4-6 Weeks Goal 6:: 41 LEFS Goal Time Frame: 4-6 Weeks Rehabilitation Potential Physical Therapy Diagnosis: L sided weakness and coordination deficits after recent stroke effecting mobility Rehabilitation Potential: Good Anticipated Interventions Patient/Client Instruction: Educate patient on: Condition and Plan of Care For the Purpose of:: To increase ROM, To improve nutrient delivery to tissue, To improve muscle performance and motor function and To increase tolerance to activity/condition/position Therapeutic Exercise to Include: Strength training, Postural training and Gait and locomotor training For the Purpose of:: To increase ROM, To improve nutrient delivery to tissue, To improve muscle performance and motor function and To increase tolerance to activity/condition/position Text: Thank you for the opportunity to evaluate your patient. For Medicare and Medicare HMO plans, please review the plan of care and approve it. It will need to be FAXED BACK to us at [phone] for Medicare purposes. For Medicare only, by signing this I certify the plan of care. Please let me know if there are questions or concerns regarding this plan of care. Physician Signature: Date:
--- NOTE | 2024-06-06 18:01 | HP.SP.EVAL ---
Visit History Visit Info Date of Eval: 06/06/24 Visit: 1 Electrician Chief: SAMMI History Attending Doctor: Referring Doctor: Reason for Referral: STROKE. RX HERE Smoking Status: Never smoker Pain Is pain an issue with your current prescribed condition?: No Personal Preferred language: Mauritian Patient Allergies Allergies Allergies: Allergies No Known Allergies Allergy (Unverified 09/30/22 10:52) CLQT CLQT CLQT Administered: Yes CLQT: Cognitive Linguistic Quick Test (CLQT) is a criterion - referenced assessment designed for adults between the ages of 18 and 89 with known or suspected neurological dysfuntions. The CLQT is to assess strength and weaknesses in five cognitive domains. Severity ratings are within normal limits, mild, moderate, severe deficits. The subtests are as follows: Date: 06/06/24 Attention Attention: WNL Memory Memory: Moderate Executive Functions Executive Functions: WNL Language Language: Mild Visuospatial Skills Visuospatial Skills: WNL Composite Severity Rating Composite Severity Rating: Mild Clock Drawing Severity Rating Clock Drawing Severity Rating: WNL CLQT Comments Scores:: -: Attention: 195 Memory: 128 Executive Functions: 31 Language: 25 Visuospatial Skills: 97 Composite Severity Ratin.4 Reference: Neuro-QoL instrument Radiation Oncology Patient Plan Plan Plan: Patients composite severity rating for this evaluation is a 3.4, which is indicative of a mild cognitive deficit. Areas of need include memory (score lies within the moderate range), language (score lies at the low end of the moderate range), and higher level cognition (executive functioning). Patient will receive speech therapy services for memory and executive functioning skills 1x per week for 8 weeks. Recommendations Treatment Warranted: Yes Treatment Warranted: Receptive/ Expressive Language and Cognition Progress Prognosis: Excellent Frequency Frequency: 1x/Week Duration: 2 Months Visits in this POC: 8 Goals that are Established Determination:: Goals will be added/modified as deemed necessary and appropriate. Therapy will be discontinued when results of re-evaluation indicate therapy is no longer needed or lack of progress has been documented. Goal #1-5 Goal #1: Pt will complete basic to mod complex immediate, short-term, and working memory tasks with 90% acc independently across 3 measured opportunities. Goal #2: Pt independently will complete complex problem solving, reasoning, and executive function tasks including but not limited to functional ADL (i.e. managing finances, safety awareness, paying bills, medication management, meal planning, using cellphone) with 90% acc during 2/3 sessions. Goal #3: Receptive: Pt will participate in auditory comprehension tasks with 65% acc independently following either oral presentation or decoding a passage across 3 measured opportunities. Education Patient has Indicated that the Following Identified Educational Needs: None The Patient has indicated that they have no educational or learning abilities that may effect their care.: Yes Patient Instruction Patient Education: Diagnosis, Treatment Plan and Goals Person Taught: Patient Response to teaching: Reinforcement Needed
--- NOTE | 2024-06-06 18:17 | HP.SP.EV_ITS ---
Visit History Visit Info Date of Eval: 06/06/24 Visit: 1 Employment Agency Manager: SAMMI History Attending Doctor: Referring Doctor: Reason for Referral: STROKE. RX HERE Other Relevant Medical History/Diagnoses/Surgery: Yahaira Lancaster is a 69 yo F with a PMH of HTN, morbid obesity, GERD, nocturia, chronic low back pain (takes Meloxicam) and insomnia who presented to the emergency department at [facility] on Thursday05/15/2024 complaining of weakness of the left arm and left and left leg and tingling in the left hand. She also admits to having some memory difficulties for ~6-8 months preceding this hospitalization. CTA of the head and neck showed moderate stenosis of the distal right vertebral artery just proximal to the basilar artery which was patent. An incidental finding was scattered hypodensities throughout the periventricular white matter most likely consistent with chronic small vessel angiopathy. MRI on 05/16/2024 showed acute/early subacute nonhemorrhagic lacunar infarct centered in the right garza radiata and posterior putamen. There were mild chronic microvascular white matter ischemic changes. She was admitted to the [facility] inpatient rehabilitation unit on 05/17/2024 for 3 hours of therapy daily to restore function/independence at/near her baseline. Pt discharged and returned home on 06/03/2024 and had been referred to [facility] for ST/PT/OT evaluations for outpatient therapies. Smoking Status: Never smoker Pain Is pain an issue with your current prescribed condition?: No Personal Preferred language: Indonesian Patient Allergies Allergies Allergies: Allergies No Known Allergies Allergy (Unverified 09/30/22 10:52) CLQT CLQT CLQT Administered: Yes CLQT: Cognitive Linguistic Quick Test (CLQT) is a criterion - referenced assessment designed for adults between the ages of 18 and 89 with known or suspected neurological dysfuntions. The CLQT is to assess strength and weaknesses in five cognitive domains. Severity ratings are within normal limits, mild, moderate, severe deficits. The subtests are as follows: Date: 06/06/24 Attention Attention: WNL Memory Memory: Moderate Executive Functions Executive Functions: WNL Language Language: Mild Visuospatial Skills Visuospatial Skills: WNL Composite Severity Rating Composite Severity Rating: Mild Clock Drawing Severity Rating Clock Drawing Severity Rating: WNL CLQT Comments Scores:: -: Attention: 195 Memory: 128 Executive Functions: 31 Language: 25 Visuospatial Skills: 97 Composite Severity Ratin.4 Reference: Neuro-QoL instrument Radiation Oncology Patient Plan Plan Plan: Patients composite severity rating for this evaluation is a 3.4, which is indicative of a mild cognitive deficit. Areas of need include memory (score lies within the moderate range), language (score lies at the low end of the moderate range), and higher level cognition (executive functioning). Patient will receive speech therapy services for memory and executive functioning skills 1x per week for 8 weeks. Recommendations Treatment Warranted: Yes Treatment Warranted: Receptive/ Expressive Language and Cognition Progress Prognosis: Excellent Frequency Frequency: 1x/Week Duration: 2 Months Visits in this POC: 8 Goals that are Established Determination:: Goals will be added/modified as deemed necessary and appropriate. Therapy will be discontinued when results of re-evaluation indicate therapy is no longer needed or lack of progress has been documented. Goal #1-5 Goal #1: Pt will complete basic to mod complex immediate, short-term, and working memory tasks with 90% acc independently across 3 measured opportunities. Goal #2: Pt independently will complete complex problem solving, reasoning, and executive function tasks including but not limited to functional ADL (i.e. managing finances, safety awareness, paying bills, medication management, meal planning, using cellphone) with 90% acc during 2/3 sessions. Goal #3: Receptive: Pt will participate in auditory comprehension tasks with 65% acc independently following either oral presentation or decoding a passage across 3 measured opportunities. Education Patient has Indicated that the Following Identified Educational Needs: None The Patient has indicated that they have no educational or learning abilities that may effect their care.: Yes Patient Instruction Patient Education: Diagnosis, Treatment Plan and Goals Person Taught: Patient Response to teaching: Reinforcement Needed
--- NOTE | 2024-06-07 07:50 | HP.OTEVAL_ITS ---
Patient's Visit Information Visit Information Visit Information: LEROY CHRISTIAN is a 69 year old F, referred to Occupational Therapy by Dr. Ruth Nunn DO, with a diagnosis of CVA. Date of Evaluation: 06/06/24 Occupational Therapist: Arianna Hill, NOELLE/Brittany, CHT Subjective Subjective: This 69 year old female was seen for OT eval with dx - pt states 3 weeks ago she had issues with ambulation ( holding wall to support self) pt states that was on a weekend- and she thought she would go to the Dr. Thursday- pt states her had pneumonia- and her dtr met them there and her dtr- noticed she was not well and wanted her mother evaluated and this is when they found pt had a stroke- pt states left side is weaker causing issues. pt states she is right handed pt states ADLs Comments: pt states she lives with her in mobile home with 2 entry step no handrail- bathroom is tub shower combination- with use of shower chair pt states PLOF she was ind. with all ADLs and IADLs pt now having help from family as needed went looking at condos in [place] vs staying in [place] ROM ROM Comments: pt demo ROM WFL noted decrease gross motor control of left UE Strength Shoulder: right 15# left 8# Elbow: right 18# left 14# De Icer Finisher: right 55# left 35# Lateral Pinch: right 16# left 12# Tripod Pinch: right 12# left 10# Strength Comments: pt demo with a decrease in left UE strength Sensation Sensation Comments: denies In-Hand Manipulation Finger to Palm Translation: Normal - Right and Mild - Left Palm to Finger Translation: Normal - Right and Mild - Left Shift: Normal - Right and Normal - Left Stroke Specific Quality of Life Total SS-QOL Score: 211 Quick DASH-Disab of Arm,Shoulder& Hand Quick DASH Score: 18.1800 Goals Goal:: 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 with ADLs by d/c pt will demo a increase in Left UE strength peak force to 15# or greater to increase pts ind. with ADls by d/c Goal:: pt will demo good control of left UE when reaching for items over head- arm out in front of pt with 100% accuracy demo increase in left UE Gross motor control Rehabilitation General Assessment: pt demo with a decrease in left UE gross motor control, weakness limiting pts IND with IADLs. pt would benefit from skilled OT services 2-3 x week for 4-8 weeks to return pt to her PLOF. Pt demo understanding and agree to POC. Rehabilitation Potential: Good Anticipated Interventions Anticipated Interventions: A/AAROM/PROM, Strengthening, Neuro Reeducation, Education re assistive Equipment, Education re Diagnosis and Home Program Visit Plan Frequency: 2-3x /Week Duration: 4 Weeks General Plan: pt to bring handouts on current ex. next visit initiate PRE and continue to add to her current HEP TEXT: Thank you for the opportunity to evaluate your patient. For Medicare and Medicare HMO plans, please review the plan of care and approve it. It will need to be FAXED BACK to us at [phone] for Medicare purposes. Please let me know if there are questions or concerns regarding this plan of care. Physician Signature: Date:
[2024-06-13 14:08] LABS: V-Zoster Virus Acute IgM < 0.91 index (0.00-0.90)
--- NOTE | 2024-07-04 14:38 | HP.PTREVAL ---
Re-Evaluation Intro: Dr. Ruth Nunn, DO, It has been my pleasure to treat LEROY CHRISTIAN over the last 9 visits for stroke. Please see the progress note below for an update on the physical therapy plan of care! Subjective Subjective: Feels like she is having a lot of improvement. Still has little toes on L foot are not moving as well as the right foot. Doing LTR adn skc daily. Walking with walker at home but getting away from it. uses it more out and about. Feeling safer without it but still wobbly. Looking into driving assessmetn for OT. Activities at home: still helps her climb into tub and sits in shower chair. Getting foot over tub but needs assist for safety. continues with some LBP common for her due to OA. Sees doctor in July. Went out to eat over the weekend adn held husbands arm. Objective Objective/Function: Improving fGa +3, TUG is good with wh walker but wants to get rid of it as prior to stroke. 30 sSTS is low for age. Poor weight shift FW standing from chair. stepping over object as in tub requires holding on and hard to get foot up over 16 inch box. Walking today without AD but does not feel steady, used wh walker to get in to PT. Steps require rail and lack FW weight shift, does not feel weak or painful. Goals still appropriate for new POC through early July. Fair prognosis. Plan Plan Plan: 2x/week for 4 more weeks until July to work on 1. Gait with cane or without AD for confidence and instruction. 2. Get on an aggressive LE and postural strength program pt can do at home with [id number] not be joining gym( 3. Wrok on funcitonal weight shift lateral and FW 4. Work on stepping over higher objects and SLS to do so, progress each session and to HEP Balance/Gait/Functional tests Balance/Special Test Scores Functional Gait Assessment Score: 23 % Disability: 23.3400 Lower Extremity Functional Score: 21 TUG Test Time Seconds: 12 30 Second Chair Rise Test Seconds: 9 Goals Goals Goal 1:: walk in community without AD I Goal Time Frame: 4-6 Weeks Goal Progress: Progressing Goal 2:: steps with one rail reciprocally and confidently Goal Time Frame: 4-6 Weeks Goal Progress: Progressing Goal 3:: Step into bathtub I for shower Goal Time Frame: 4-6 Weeks Goal Progress: hard to lift leg [place] Goal 4:: Pt feel 99% back to normal activities Goal Time Frame: 4-6 Weeks Goal Progress: 80% Goal 5:: I appropriate HEP for LE and general strength and L LE coordination/balance. Goal Time Frame: 4-6 Weeks Goal Progress: Progressing Goal 6:: 41 LEFS Goal Time Frame: 4-6 Weeks Anticipated Interventions Anticipated Interventions Patient/Client Instruction: Educate patient on: Condition and Plan of Care For the Purpose of:: To increase ROM, To improve nutrient delivery to tissue, To improve muscle performance and motor function and To increase tolerance to activity/condition/position Therapeutic Exercise to Include: Strength training, Postural training and Gait and locomotor training For the Purpose of:: To increase ROM, To improve nutrient delivery to tissue, To improve muscle performance and motor function and To increase tolerance to activity/condition/position Re-Evaluation Ending Re-evaluation ending: Please do not hesitate to contact me at [phone] by phone or if you have questions or concerns regarding this new plan of care! Sincerely, Ben Mccormack, DPT, OCS, CSCS
--- NOTE | 2024-08-01 13:55 | HP.PTREVAL ---
Re-Evaluation Intro: Dr. Ruth Nunn, DO, It has been my pleasure to treat LEROY CHRISTIAN over the last 14 visits for stroke. Please see the progress note below for an update on the physical therapy plan of care! Subjective Subjective: Getting better. I am doing things better than previously. Exercises are getting easier. Getting around without an AD OK. Does hold husbands arm sometimes. Still care ful. No falls. Balance feeling better. Not grabbing stuff like she used to. Doing her own basics at home washing dishes, dresses self, goes to bathroom I,, needs assist to get over tub with LOB. Not sweeping. HEP: challenging every other day. Objective Objective/Function: Walks with just slight L weakness but I on firm flat surface. steps reciprocally with one rail but tends to use two and has poor confidenc ein her own abilities on steps and stepping over. Wishes to ry to continue progress via HEP and will f/u in two weeks or call prior if needed. New goal of on FGA and continue toward current goals with HEP vs in clinic therapy. Fair prognosis Plan Plan Plan: f/u 3 weeks to ensure progress with FGA, steps confidence, activity at home and trial of 30 SSTS Balance/Gait/Functional tests Balance/Special Test Scores Functional Gait Assessment Score: 23 % Disability: 23.3400 Lower Extremity Functional Score: 36 TUG Test Time Seconds: 14 Tug Test: <20 sec.=mostly independent 30 Second Chair Rise Test Seconds: 9 Goals Goals Goal 1:: walk in community without AD I Goal Time Frame: 4-6 Weeks Goal Progress: Goal Met Goal 2:: steps with one rail reciprocally and confidently Goal Time Frame: 4-6 Weeks Goal Progress: Progressing Goal 3:: Step into bathtub I for shower Goal Time Frame: 4-6 Weeks Goal Progress: SBA Goal 4:: Pt feel 99% back to normal activities Goal Time Frame: 4-6 Weeks Goal Progress: 90% Goal 5:: I appropriate HEP for LE and general strength and L LE coordination/balance. Goal Time Frame: 4-6 Weeks Goal Progress: Goal Met Goal 6:: 41 LEFS Goal Time Frame: 4-6 Weeks Goal Progress: Progressing Anticipated Interventions Anticipated Interventions Patient/Client Instruction: Educate patient on: Condition and Plan of Care For the Purpose of:: To increase ROM, To improve nutrient delivery to tissue, To improve muscle performance and motor function and To increase tolerance to activity/condition/position Therapeutic Exercise to Include: Strength training, Postural training and Gait and locomotor training For the Purpose of:: To increase ROM, To improve nutrient delivery to tissue, To improve muscle performance and motor function and To increase tolerance to activity/condition/position Re-Evaluation Ending Re-evaluation ending: Please do not hesitate to contact me at [phone] by phone or if you have questions or concerns regarding this new plan of care! Sincerely, Ben Mccormack, DPT, OCS, CSCS
--- NOTE | 2024-08-01 15:59 | HP.SPREEV_ITS ---
Visit History Visit Info Date of Eval: 08/01/24 Visit: 1 Drying Room Supervisor: SAMMI History Attending Doctor: Referring Doctor: Reason for Referral: STROKE. RX HERE Other Relevant Medical History/Diagnoses/Surgery: Yahaira Lancaster is a 69 yo F with a PMH of HTN, morbid obesity, GERD, nocturia, chronic low back pain (takes Meloxicam) and insomnia who presented to the emergency department at [facility] on Thursday05/15/2024 complaining of weakness of the left arm and left and left leg and tingling in the left hand. She also admits to having some memory difficulties for ~6-8 months preceding this hospitalization. CTA of the head and neck showed moderate stenosis of the distal right vertebral artery just proximal to the basilar artery which was patent. An incidental finding was scattered hypodensities throughout the periventricular white matter most likely consistent with chronic small vessel angiopathy. MRI on 05/16/2024 showed acute/early subacute nonhemorrhagic lacunar infarct centered in the right garza radiata and posterior putamen. There were mild chronic microvascular white matter ischemic changes. She was admitted to the [facility] inpatient rehabilitation unit on 05/17/2024 for 3 hours of therapy daily to restore function/independence at/near her baseline. Pt discharged and returned home on 06/03/2024 and had been referred to [facility] for ST/PT/OT evaluations for outpatient therapies. Smoking Status: Never smoker Pain Is pain an issue with your current prescribed condition?: No Personal Preferred language: Welsh Patient Allergies Allergies Allergies: Allergies No Known Allergies Allergy (Verified 07/01/24 10:59) Previous/Current Goals Goals 1-5 Previous Goal #1: Pt will complete basic to mod complex immediate, short-term, and working memory tasks with 90% acc independently across 3 measured opportunities. Previous Goal #2: Pt independently will complete complex problem solving, reasoning, and executive function tasks including but not limited to functional ADL (i.e. managing finances, safety awareness, paying bills, medication management, meal planning, using cellphone) with 90% acc during 2/3 sessions. Previous Goal #3: Pt will participate in auditory comprehension tasks with 90% acc independently following either oral presentation or decoding a passage across 3 measured opportunities. CLQT CLQT CLQT Administered: Yes CLQT: Cognitive Linguistic Quick Test (CLQT) is a criterion - referenced assessment designed for adults between the ages of 18 and 89 with known or suspected neurological dysfuntions. The CLQT is to assess strength and weaknesses in five cognitive domains. Severity ratings are within normal limits, mild, moderate, severe deficits. The subtests are as follows: Date: 06/06/24 Attention Attention: WNL Memory Memory: Moderate Executive Functions Executive Functions: WNL Language Language: Mild Visuospatial Skills Visuospatial Skills: WNL Composite Severity Rating Composite Severity Rating: Mild Clock Drawing Severity Rating Clock Drawing Severity Rating: WNL CLQT Comments Scores:: -: Attention: 195 Memory: 128 Executive Functions: 31 Language: 25 Visuospatial Skills: 97 Composite Severity Ratin.4 CLQT Re-Eval Testing Results CLQT Test Comparison: Initial Evaluation Scores: - Attention: 195 (WNL) - Memory: 128 (Moderate) - Executive Function: 31 (WNL) - Language: 25 (Mild) - Visuospatial Skills: 97 (WNL) - Composite Severity Ratin.4 (Mild) - Clock Drawin (WNL) Re-Evaluation Scores: - Attention: 190 (WNL) - Memory: 163 (WNL) - Executive Function: 24 (WNL) - Language: 30 (WNL) - Visuospatial Skills: 89 (WNL) - Composite Severity Ratin.0 (WNL) - Clock Drawin (WNL) Reference: Neuro-QoL instrument Radiation Oncology Patient Plan Plan Plan: Based on CLQT+ scores falling within normal limits for all domains, it is recommended to discontinue skilled speech therapy services at this time. Recommendations Treatment Warranted: No Treatment Warranted: Receptive/ Expressive Language and Cognition Progress Prognosis: Excellent Frequency Frequency: 1x/Week Duration: 2 Months Visits in this POC: 8 Goals that are Established Determination:: Goals will be added/modified as deemed necessary and appropriate. Therapy will be discontinued when results of re-evaluation indicate therapy is no longer needed or lack of progress has been documented. Goal #1-5 Goal #1: Pt will complete basic to mod complex immediate, short-term, and working memory tasks with 90% acc independently across 3 measured opportunities. Goal #2: Pt independently will complete complex problem solving, reasoning, and executive function tasks including but not limited to functional ADL (i.e. managing finances, safety awareness, paying bills, medication management, meal planning, using cellphone) with 90% acc during 2/3 sessions. Goal #3: Pt will participate in auditory comprehension tasks with 90% acc independently following either oral presentation or decoding a passage across 3 measured opportunities. Education Patient has Indicated that the Following Identified Educational Needs: None The Patient has indicated that they have no educational or learning abilities that may effect their care.: Yes Patient Instruction Patient Education: Diagnosis, Treatment Plan and Goals Person Taught: Patient Response to teaching: Reinforcement Needed
--- NOTE | 2024-08-16 10:34 | HP.PTDCSUM ---
Discharge Summary D/C summary: It has been my pleasure to treat LEROY CHRISTIAN referred by Dr. Ruth Nunn DO, with the diagnosis of stroke for a total of 15 visit(s). Discharge Date: 08/16/24 Please see the following information for a summary of their discharge status. Subjective Subjective: I did some exercises working on getting stronger. Lots of walking lately and doing well with that. I feel good. 4 toes on L foot are not bending right. Feels weird when walking. No pain. Activities: pretty normal, eusebio still helps step over tub as their is no rail but will get one. 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 Sleeping OK. No falls. Back to doctor in August. Neurologist in October. Pt wants to try and work on things at home vs more therapy. Pain back: Pain Intensity (Out of 10): 5 Overall Improvement % Improvement: 90 Objective Objective/Function: Walks with slight L trendelenberg but safe adn I on firm flat surface. Steps reciprocal with one rail, weaker on R. Toes on L moving well but sensation appears to be at deficit limiting confidence and comfort. Goals Goal 1:: walk in community without AD I Goal Progress: Goal Met Goal 2:: steps with one rail reciprocally and confidence Goal Progress: able, lacks confidence Goal 3:: Step into bathtub I for shower Goal Progress: SBA needed Goal 4:: Pt feel 99% back to normal activities Goal Progress: 90% Goal 5:: I appropriate HEP for LE and general strength and L LE coordination/balance. Goal Progress: Goal Met Goal 6:: 41 LEFS Goal Progress: Goal Met Plan Plan: d/c to HEP, pt choice, educated on balance safety and benefits of using AD if tired or slippery. D/C Information Discharge Comments: Pt to neuro in October, family doc in August and back doctor in August. d/c sentence: If there are questions or concerns regarding this patient's physical therapy, please feel free to call me at [phone]. Thank you for the referral of this patient. Sincerely, Ben Mccormack, DPT, OCS, CSCS Balance/Gait/Functional tests Balance/Special Test Scores Functional Gait Assessment Score: 23 % Disability: 23.3400 Lower Extremity Functional Score: 42 TUG Test Time Seconds: 14 Tug Test: <20 sec.=mostly independent 30 Second Chair Rise Test Seconds: 9 Improvement % Improvement: 90
== END 2024-08-16 19:00 | disposition home or self-care (01) ==
LOC: PT 10:00
PROVIDERS: Obstetrics & Gynecology; PCP Internal Medicine; Referring Provider Internal Medicine; Visit Provider Internal Medicine
DX: Z86.73 Personal history of transient ischemic attack (TIA), and cerebral infarction without residual deficits (principal); R41.841 Cognitive communication deficit
CPT/HCPCS: 36415; 86695; 86696; 86787; 87255; 92507; 97110; 97116; 97162; 97166; 97530

== ENCOUNTER → 2024-12-05 | Outpatient (CLI) | payer MEDICARE, SELFPAY ==
--- NOTE | 2024-12-05 09:25 | EMB_PTH ---
PATIENT: LEROY CHRISTIAN LOC: [facility] U#:[id number] AGE/SX: 69/F ROOM: RE12/05/[address]: Dr. Alessia Ha DO : 1955 BED: DIS: 12/05/2024 SPEC #: [id number] RECD: 12/05/24 12:41 STATUS: MIMI ISAMAR #: [id number] AMINA: 12/05/24 09:[address]: Alessia Ha DEPT: SURGICAL PATHOLOGY RECD BY: Aldo Montalvo ENTERED: 12/05/24 12:41 SP TYPE: ENDOM BX/C OTHR DR: Dr. Colby Avendaño MD Tissues: A - Endometrium, NOS Procedures: Surgery Specimen Level IV HEADER OPERATION: Endometrial biopsy PRE-OP DIAGNOSIS: Endometrial hyperplasia TISSUE SUBMITTED: A- Endometrial lining MICROSCOPIC DIAGNOSIS A. Uterus, endometrial lining, biopsy: * Scant superficial endometrium consistent with atrophy. * Scant chronically inflamed endocervical mucosa. MICROSCOPIC DESCRIPTION Slides are reviewed. GROSS DESCRIPTION A. Received in formalin in a container labeled with the patient's name, date of , and with the accompanying paperwork indicating, endometrial lining are multiple red-armando fragments of soft tissue admixed with blood and mucus measuring 1.7 x 1.3 x 0.3 cm in aggregate. Submitted in toto in A1. [facility] 12-05-2024 CPT:68416
== END | disposition home or self-care (01) ==
PROVIDERS: PCP Internal Medicine; Visit Provider Obstetrics & Gynecology
DX: N85.00 Endometrial hyperplasia, unspecified (principal)
CPT/HCPCS: 88305